=== PATIENT | female | born 1985 | race Caucasian/White ===

== ENCOUNTER 2017-01-20 08:35 | Emergency (ER) ==
[2017-01-20 08:40] VITALS: BP 117/69
[2017-01-20 10:30] LABS: UR AMPHETAMINES QUAL PRESUMPTIVE POSITIVE (NONE DETECT); UR BARBITUATES QUAL NONE DETECTED (NONE DETECT); UR BENZODIAZEPIN QUAL PRESUMPTIVE POSITIVE (NONE DETECT); UR CANNABINOIDS QUAL NONE DETECTED (NONE DETECT); UR COCAINE QUAL NONE DETECTED (NONE DETECT); UR METHADONE QUAL PRESUMPTIVE POSITIVE (NONE DETECT); UR OPIATES QUAL NONE DETECTED (NONE DETECT); UR OXYCODONE QUAL NONE DETECTED (NONE DETECT); UR PCP QUAL PRESUMPTIVE POSITIVE (NONE DETECT)
== END 2017-01-20 09:47 | disposition left against medical advice (07) ==
LOC: ED 08:35
DX: M54.9 Dorsalgia, unspecified (principal); R47.81 Slurred speech; Z98.890 Other specified postprocedural states
CPT/HCPCS: G0480; 80324; 80345; 80346; 80349; 80353; 80358; 80361; 80365; 83992

== ENCOUNTER → 2017-01-22 | Emergency (ER) ==
[2017-01-22 08:44] VITALS: BP 120/78
--- NOTE | 2017-01-22 09:38 | PROVIDER DOCUMENTATION ---
HPI-Musculoskeletal Pain/Inj - GENERAL Chief Complaint: Back Pain Stated Complaint: BCK PAIN Time Seen by Provider: 01/22/17 09:11 Source: patient - HX OF PRESENT ILLNESS-MUSKULOSKELTAL Nature of Presenting Problem: Pt is a 31 y/o white female c chief complaint of back pain. NOTE: I went into the patient's room to see her. I greeted her and introduced myself and she immediately shouted that she dose not want to see a PA or [employer] and that she wants to see a doctor. I contacted Dr. Olmedo (ER MD) who was at bedside with a critical patient. He will see this pt when it is safe to leave the pt. Pt also initially refused to give a urine sample but after I left the room, threw the urine cup toward the door spilling urine on the floor. Review of Systems - Adult - REVIEW OF SYSTEMS - ADULT ROS:: limited per condition (Pt refused to discuss ROS with provider) Constitutional: reports: no symptoms reported Eyes: reports: no symptoms reported Ears, Nose, Mouth & Throat: reports: no symptoms reported Cardiovascular: reports: no symptoms reported Respiratory: reports: no symptoms reported Gastrointestinal: reports: no symptoms reported Genitourinary: reports: no symptoms reported Musculoskeletal: reports: no symptoms reported Integumentary: reports: no symptoms reported Neurological: reports: no symptoms reported Psychiatric: reports: no symptoms reported Endocrine: reports: no symptoms reported Hematologic/Lymphatic: reports: no symptoms reported Allergic/Immunologic: reports: no symptoms reported All Other Systems: Reviewed and Negative Past History - Adult - PAST MEDICAL HISTORY-ADULT Review of Records: reports: Old Records Reviewed, Nursing Assessment Review, Medications Reviewed, Social history reviewed & non-contributory. Major Childhood Illnesses: reports: denies history Cardiovascular: reports: CHF Respiratory: reports: asthma, pneumonia Gastrointestinal: reports: Crohn's, colitis, GERD, pancreatitis, polyps (colon) Obstetrical/Gynecological: reports: endometriosis Genitourinary: reports: kidney stones Musculoskeletal: reports: intervertebral disc disease, neck/back injury, orthopedic injury Neurological: reports: denies history Psychiatric: reports: anxiety, ptsd Endocrine/Immune: reports: denies history Other Conditions: reports: denies history - PRIOR SURGERIES/PROCEDURES Surgical/Procedure History: reports: appendectomy, EGD, hysterectomy, bowel surgery (colon), back/neck (neck Sx), other (dx chrons disease, rotator cuff, polyps removed from colon ) - IMMUNIZATION STATUS Childhood Immunizations: See Nurse Assessment Flu Vaccine: See Nurse Assessment - FAMILY HISTORY Family History: reviewed, not pertinent Physical Exam-Injury Related - Physical Exam-Injury Related Exam Limited by: Pt refused physical exam Initial Vital Signs Reviewed: Yes General Appearance: appears well, alert, no apparent distress Progress - PLAN OF CARE/RESULTS Progress/Plan/Lab Results: Orders Category Date Time Status UA Reflex [URINALYSIS W/POSS RFLX CULT] [URINALYSIS] Lab 01/22/17 09:25 Uncollected Stat Vital Signs - 24 hr 01/22/17 08:43 Temperature 98.1 F Pulse Rate 113 H Respiratory 18 Rate Blood Pressure 120/78 O2 Sat by Pulse 99 Oximetry - REASSESSMENT Reassessment #1 Time Reassessed: 09:49 (Patient's friend came out of her exam room and asked how long it would be until she saw a physician. I told her that Dr. Olmedo is currently at bedside with a critical patient but another physician would be coming on duty in 10 minutes. The patient screamed from the room, "this is bull shit" and stormed out of the ER. Pt was noted to have a normal gait and to have full use of her legs. Unfortunately, pt would not permit me to preform an exam. pt was seen in the ER on 01/20/17 and had a UDS that was positive for multiple drugs. ) Reassessment #2 Time Reassessed: 10:00 (Pt walked past Dr. Olmedo as he was coming to see her. The tech asked her if she would like to stop and talk with the physician. She continued to walk out of the ER yelling profanities. ) Departure - Departure Time of Disposition Order: 10:03 DIAGNOSIS: Malingering, Anger Back pain Qualifiers: Back pain location: back pain in unspecified location Chronicity: unspecified Back pain laterality: midline Qualified Code(s): M54.89 - Other dorsalgia [facility]: Emergent Condition: Stable Additional Instructions: ED Follow Up Instructions: You have been treated by a care provider in the Emergency Department. These instructions are being provided to you so you can have an understanding of how to care for yourself upon discharge. Upon discharge from the Emergency Department, you are responsible for making arrangements for follow-up care by a physician of your choice. Take all prescribed medications as directed. Return to the Emergency Department immediately for any new or worsening symptoms. You may call the Physician Referral phone number at [phone] to obtain a list of Physicians who are taking new patients. Referrals: Carrillo Araujo, DO [Primary Care Provider] - Attestation - Physician/ [facility] Attestation Patient care was provided by Advanced Practice Provider:: Yes Advanced Practice Provider:: Jackson Carballo Advanced Practice Provider documentation review:: The Mid-level provider documentation, treatment plan and medical decision making was reviewed by the physician who agrees with all treatment and medical decision making by the MLP.
== END | disposition left against medical advice (07) ==
LOC: ED 08:36
DX: M54.89 Other dorsalgia (principal); R45.4 Irritability and anger; Z76.5 Malingerer [conscious simulation]; Z87.442 Personal history of urinary calculi

== ENCOUNTER 2017-01-26 10:10 | Emergency (ER) ==
[2017-01-26] MEDS ORDERED: NS 1,000 ML IV ONE (10:15)
[2017-01-26] MEDS ORDERED: ACTIDOSE 50 GM LIQUID NG ONE (10:25)
[2017-01-26 10:45] LABS: URINE CULTURE NEEDED? NO; URINE MICRO REVIEW NEEDED? NO; URINE SOURCE CLEAN CATCH
[2017-01-26 10:47] LABS: MANUAL DIFF NEEDED? NO
[2017-01-26 10:56] LABS: BILIRUBIN URINE NEGATIVE (NEGATIVE); BLOOD URINE NEGATIVE (NEGATIVE); COLOR YELLOW; GLUCOSE URINE NEGATIVE (NEGATIVE); LEUKOCYTES URINE NEGATIVE (NEGATIVE); NITRITE URINE NEGATIVE (NEGATIVE); PROTEIN URINE TRACE mg/dL (NEGATIVE); SP GRAVITY URINE 1.029; TURBIDITY URINE CLEAR (CLEAR); UR EPITHELIAL CELLS <10 /HPF (<10); URINE BACTERIA 1+ /HPF; URINE RBC <10 /HPF (<10); URINE WBC <10 /HPF (<10); UROBILINOGEN URINE NORMAL (NORMAL)
[2017-01-26 10:56] LABS: BASO% 0.2 % (0.0-0.8); EOS# 0.12 X1000 (0.0-0.7); EOS% 1.4 % (0.0-10.0); HEMATOCRIT 42.6 % (37.0-47.0); HEMOGLOBIN 14.3 g/dL (12.0-16.0); LYMPH# 2.09 X1000 (1.2-3.4); LYMPH% 23.8 % (20.5-51.1); MCH 30.6 PG (27-31); MCHC 33.6 g/dL (33-37); MCV 91.2 FL (81-99); MONO# 0.54 X1000 (0.11-0.59); MONO% 6.2 % (1.7-9.3); NEUT% 68.4 % (42.2-75.2); PLT 361 X1000 (130-400); RBC 4.67 XMIL (4.2-5.4)
[2017-01-26 11:03] LABS: INR 1.03; PROTIME 10.9 Seconds (9.2-11.7)
--- NOTE | 2017-01-26 11:08 | PROVIDER DOCUMENTATION ---
HPI-Psychological Disorder - General Source: patient, EMS - History of Present Illness-Psych Onset/Duration: reports: this morning Timing: reports: still present Severity: reports: moderate Psychiatric Complaints: reports: insomnia, suicidal ideation Previous psych related hospitalizations?: Yes Patient arrived by:: EMS called by patient Similar Symptoms Previously?: Yes Recently seen or treated by another doctor?: Yes <Parish Light - Last Filed: 01/26/17 17:38> <Sayda Li - Last Filed: 01/27/17 08:15> - General Chief Complaint: Suicide Attempt Stated Complaint: SI, Tylenol O/D Time Seen by Provider: 01/26/17 10:50 Allergies/Adverse Reactions: Patient Allergies Allergy/AdvReac Type Severity Reaction Status Date / Time ketorolac tromethamine * Allergy SWELLING Verified 01/05/17 10:52 [From Toradol] lamotrigine [From Lamictal] Allergy RASH Verified 01/05/17 10:52 methocarbamol [From Robaxin] Allergy ANAPHYLAXIS Verified 01/05/17 10:52 Home Medications: Home Medication List Medication Instructions Recorded Confirmed Last Taken Type Alprazolam [Xanax] 1 mg PO BID 11/01/15 01/26/17 01/26/17 07:00 History 1 MG Quetiapine Fumarate [Seroquel] 600 mg PO QHS 07/20/16 01/26/17 01/26/17 07:00 History 600 MG Sertraline HCl [Zoloft] 100 mg PO DAILY 10/11/16 01/26/17 01/26/17 07:00 History 100 MG - History of Present Illness-Psych Nature of Presenting Problem: Reports to er with cc of SI brought to er by ems. EMS reports pt had tried overdosing with tylenol and benadryl. 30010 milligrams of tylenol and 2400 milligrams of benadryl. Pt is alert and oriented x 3 on arrival. REprots had back sx last week continues to have pain. Mental health changed medication and has been getting any sleep in a week and reports tried killing herself. (Parish Light) Review of Systems - Adult - REVIEW OF SYSTEMS - ADULT Constitutional: denies: chills, fever, fatique Eyes: reports: no symptoms reported Ears, Nose, Mouth & Throat: reports: no symptoms reported Cardiovascular: denies: chest pain, irregular heart rate, orthopnea Respiratory: reports: no symptoms reported Gastrointestinal: reports: no symptoms reported Genitourinary: reports: no symptoms reported Musculoskeletal: reports: back pain. denies: bone pain, joint pain, joint swelling, muscle aches Integumentary: reports: no symptoms reported Neurological: reports: no symptoms reported Psychiatric: reports: see HPI, insomnia, suicidal thoughts Endocrine: reports: no symptoms reported Hematologic/Lymphatic: reports: no symptoms reported Allergic/Immunologic: reports: no symptoms reported All Other Systems: Reviewed and Negative <Parish Light - Last Filed: 01/26/17 17:38> Past History - Adult - PAST MEDICAL HISTORY-ADULT Review of Records: reports: Nursing Assessment Review, Medications Reviewed Major Childhood Illnesses: reports: denies history Cardiovascular: reports: CHF Respiratory: reports: asthma, pneumonia Gastrointestinal: reports: Crohn's, colitis, GERD, pancreatitis, polyps (colon) Obstetrical/Gynecological: reports: endometriosis Genitourinary: reports: kidney stones Musculoskeletal: reports: intervertebral disc disease, neck/back injury, orthopedic injury Neurological: reports: denies history Psychiatric: reports: anxiety, ptsd Endocrine/Immune: reports: denies history Other Conditions: reports: denies history - PRIOR SURGERIES/PROCEDURES Surgical/Procedure History: reports: appendectomy, EGD, hysterectomy, bowel surgery (colon), back/neck (neck Sx), other (dx chrons disease, rotator cuff, polyps removed from colon ) - IMMUNIZATION STATUS Childhood Immunizations: See Nurse Assessment Flu Vaccine: See Nurse Assessment - FAMILY HISTORY Family History: reviewed, not pertinent - SOCIAL HISTORY Smoking: cigarettes, less than 1 pack/day Provider spent 3-5 mins advising pt. on dangers of tobacco.: Discussed manners to quit use, and f/u contacts for add'l counseling. Substance Use: none/never <Parish Light - Last Filed: 01/26/17 17:38> Physical Exam-Psych Focus - Physical Exam-Psych Initial Vital Signs Reviewed: Yes Appearance: no apparent distress, no memory impairment, alert. 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 nml as tested, oriented x 3, responds to pain Behavior/Eye Contact/Speech: cooperative, good eye contact, normal speech Thoughts/Hallucinations: no apparent hallucination HENMT: normal ENT inspection, TMs normal, pharynx normal Neck: non-tender, full range of motion, supple, normal inspection Respiratory: chest non-tender, lungs clear, normal breath sounds, no pleuratic chest pain, no respiratory distress, no accessory muscle use Cardiovascular: tachycardia Abdominal Exam: normal bowel sounds, non tender, soft, no organomegaly, no pulsatile mass Back Exam: other (joy lower back) Extremity: normal range of motion, non-tender Integumentary: normal color, normal turgor, warm/dry <Parish Light - Last Filed: 01/26/17 17:38> Progress - REASSESSMENT Reassessment #1 Time Reassessed: 17:11 ([facility] called for evaluation at this time) - EKG 1 Time of EKG reading by physician:: 10:24 EKG Read and Signed by:: Dmitry Urbina EKG Interpretation (*Must complete 3 of following elements*): Abnormal (ST and Twave abnormality consider anterolateral ischemia) Rate: 107 Rhythm: sinus tachy [place]: normal QRS: normal 2 Time of EKG reading by physician:: 17:35 EKG Read and Signed by:: Sayda Li EKG Interpretation (*Must complete 3 of following elements*): Abnormal (T WAVE ABNORMALITY CONSIDER ANTERIOR ISCHEMIA; PROLONGED QT) Rate: 86 Rhythm: NSR [place]: normal QRS: normal <Parish Light - Last Filed: 01/26/17 17:38> - REASSESSMENT Reassessment #2 Time Reassessed: 08:14 Status: improving (Will be transferred to [facility].) <Sayda Li - Last Filed: 01/27/17 08:15> - PLAN OF CARE/RESULTS Progress/Plan/Lab Results: Orders Category Date Time Status ACETAMINOPHEN [TDM] Stat Lab 01/26/17 10:25 Received ACETAMINOPHEN [TDM] Stat Lab 01/26/17 10:25 Received ALCOHOL BLOOD Stat Lab 01/26/17 10:25 Received CBC WITH ELECTRONIC DIFF [HEME] Stat Lab 01/26/17 10:25 Completed CMP [COMPREHENSIVE METABOLIC PANEL] [CHEM] Stat Lab 01/26/17 10:25 Received PROTIME WITH INR [COAG] Stat Lab 01/26/17 10:25 Completed SALICYLATES [TDM] Stat Lab 01/26/17 10:25 Received UA NIMS W/REFLEX CULT [URINALYSIS] Stat Lab 01/26/17 10:27 Completed UDS [URINE DRUG SCREEN] Stat Lab 01/26/17 10:27 Received 0.9% Sodium Chloride Inj [Ns] 1,000 ml Med 01/26/17 10:15 Active IV 125 mls/hr Charcoal/Sorbitol Solution [Actidose 50 gm Liquid] Med 01/26/17 10:25 Discontinued 100 gm NG NOW ONE EKG [EKG] Stat Ther 01/26/17 10:29 Ordered Vital Signs - 24 hr 01/26/17 01/26/17 10:11 11:01 Temperature 98.4 F Pulse Rate 108 H 116 H Respiratory 14 20 Rate Blood Pressure 131/68 115/66 O2 Sat by Pulse 98 98 Oximetry Laboratory Tests 01/26/17 01/26/17 01/26/17 10:25 10:25 10:27 WBC 8.77 RBC 4.67 Hgb 14.3 Hct 42.6 MCV 91.2 MCH 30.6 MCHC 33.6 RDW Std Deviation 13.4 Plt Count 361 MPV 10.0 Immature Gran % (Auto) 0.0 Neut % (Auto) 68.4 Lymph % (Auto) 23.8 [place] % (Auto) 6.2 Eos % (Auto) 1.4 Baso % (Auto) 0.2 Immature Gran # (Auto) 0.00 Neut # (Auto) 6.00 Lymph # (Auto) 2.09 [place] # (Auto) 0.54 Eos # (Auto) 0.12 Baso # (Auto) 0.02 PT 10.9 INR 1.03 Urine Source CLEAN CATCH Urine Color YELLOW Urine Turbidity CLEAR Urine pH 6.0 Ur Specific [place] 1.029 Urine Protein TRACE A Ur Glucose (Stick) NEGATIVE Ur Ketones (Stick) NEGATIVE Urine Blood NEGATIVE Urine Nitrite NEGATIVE Urine Bilirubin NEGATIVE Urobilinogen Dipstick NORMAL Urine Leukocytes NEGATIVE Urine WBC (Auto) <10 Urine RBC (Auto) <10 U Epithel Cells (Auto) <10 Urine Bacteria (Auto) 1+ Laboratory Tests 01/26/17 01/26/17 01/26/17 10:25 10:25 10:25 WBC 8.77 RBC 4.67 Hgb 14.3 Hct 42.6 MCV 91.2 MCH 30.6 MCHC 33.6 RDW Std Deviation 13.4 Plt Count 361 MPV 10.0 Immature Gran % (Auto) 0.0 Neut % (Auto) 68.4 Lymph % (Auto) 23.8 [place] % (Auto) 6.2 Eos % (Auto) 1.4 Baso % (Auto) 0.2 Immature Gran # (Auto) 0.00 Neut # (Auto) 6.00 Lymph # (Auto) 2.09 [place] # (Auto) 0.54 Eos # (Auto) 0.12 Baso # (Auto) 0.02 PT 10.9 INR 1.03 Sodium 138 Potassium 4.1 Chloride 100 Carbon Dioxide 23 L Anion Gap 15 BUN 13 Creatinine 0.7 Estimated GFR/1.73 m2 > 60 BUN/Creatinine Ratio 19 Glucose 133 H Calculated Osmolality 278 Calcium 9.4 Total Bilirubin 0.25 AST 12 ALT 13 Alkaline Phosphatase 64 Total Protein 7.5 Albumin 4.3 Globulin 3.2 Albumin/Globulin Ratio 1.3 Urine Source Urine Color Urine Turbidity Urine pH Ur Specific [place] Urine Protein Ur Glucose (Stick) Ur Ketones (Stick) Urine Blood Urine Nitrite Urine Bilirubin Urobilinogen Dipstick Urine Leukocytes Urine WBC (Auto) Urine RBC (Auto) U Epithel Cells (Auto) Urine Bacteria (Auto) Salicylates Urine Opiates Screen Ur Oxycodone Screen Ur Methadone, Qual Acetaminophen 79.8 H Ur Barbiturates Screen Ur Phencyclidine Scrn Ur Amphetamines Screen U Benzodiazepines Scrn Urine Cocaine Screen U Cannabinoids Screen Plasma/Serum Ethyl Alc 01/26/17 01/26/17 01/26/17 10:25 10:25 10:27 WBC RBC Hgb Hct MCV MCH MCHC RDW Std Deviation Plt Count MPV Immature Gran % (Auto) Neut % (Auto) Lymph % (Auto) [place] % (Auto) Eos % (Auto) Baso % (Auto) Immature Gran # (Auto) Neut # (Auto) Lymph # (Auto) [place] # (Auto) Eos # (Auto) Baso # (Auto) PT INR Sodium Potassium Chloride Carbon Dioxide Anion Gap BUN Creatinine Estimated GFR/1.73 m2 BUN/Creatinine Ratio Glucose Calculated Osmolality Calcium Total Bilirubin AST ALT Alkaline Phosphatase Total Protein Albumin Globulin Albumin/Globulin Ratio Urine Source CLEAN CATCH Urine Color YELLOW Urine Turbidity CLEAR Urine pH 6.0 Ur Specific [place] 1.029 Urine Protein TRACE A Ur Glucose (Stick) NEGATIVE Ur Ketones (Stick) NEGATIVE Urine Blood NEGATIVE Urine Nitrite NEGATIVE Urine Bilirubin NEGATIVE Urobilinogen Dipstick NORMAL Urine Leukocytes NEGATIVE Urine WBC (Auto) <10 Urine RBC (Auto) <10 U Epithel Cells (Auto) <10 Urine Bacteria (Auto) 1+ Salicylates < 3.00 L Urine Opiates Screen Ur Oxycodone Screen Ur Methadone, Qual Acetaminophen 78.6 H Ur Barbiturates Screen Ur Phencyclidine Scrn Ur Amphetamines Screen U Benzodiazepines Scrn Urine Cocaine Screen U Cannabinoids Screen Plasma/Serum Ethyl Alc 01/26/17 10:27 WBC RBC Hgb Hct MCV MCH MCHC RDW Std Deviation Plt Count MPV Immature Gran % (Auto) Neut % (Auto) Lymph % (Auto) [place] % (Auto) Eos % (Auto) Baso % (Auto) Immature Gran # (Auto) Neut # (Auto) Lymph # (Auto) [place] # (Auto) Eos # (Auto) Baso # (Auto) PT INR Sodium Potassium Chloride Carbon Dioxide Anion Gap BUN Creatinine Estimated GFR/1.73 m2 BUN/Creatinine Ratio Glucose Calculated Osmolality Calcium Total Bilirubin AST ALT Alkaline Phosphatase Total Protein Albumin Globulin Albumin/Globulin Ratio Urine Source Urine Color Urine Turbidity Urine pH Ur Specific [place] Urine Protein Ur Glucose (Stick) Ur Ketones (Stick) Urine Blood Urine Nitrite Urine Bilirubin Urobilinogen Dipstick Urine Leukocytes Urine WBC (Auto) Urine RBC (Auto) U Epithel Cells (Auto) Urine Bacteria (Auto) Salicylates Urine Opiates Screen NONE DETECTED Ur Oxycodone Screen NONE DETECTED Ur Methadone, Qual NONE DETECTED Acetaminophen Ur Barbiturates Screen NONE DETECTED Ur Phencyclidine Scrn NONE DETECTED Ur Amphetamines Screen NONE DETECTED U Benzodiazepines Scrn PRESUMPTIVE POSITIVE A Urine Cocaine Screen NONE DETECTED U Cannabinoids Screen NONE DETECTED Plasma/Serum Ethyl Alc Laboratory Tests 01/26/17 01/26/17 01/26/17 10:25 10:25 10:25 WBC 8.77 RBC 4.67 Hgb 14.3 Hct 42.6 MCV 91.2 MCH 30.6 MCHC 33.6 RDW Std Deviation 13.4 Plt Count 361 MPV 10.0 Immature Gran % (Auto) 0.0 Neut % (Auto) 68.4 Lymph % (Auto) 23.8 [place] % (Auto) 6.2 Eos % (Auto) 1.4 Baso % (Auto) 0.2 Immature Gran # (Auto) 0.00 Neut # (Auto) 6.00 Lymph # (Auto) 2.09 [place] # (Auto) 0.54 Eos # (Auto) 0.12 Baso # (Auto) 0.02 PT 10.9 INR 1.03 Sodium 138 Potassium 4.1 Chloride 100 Carbon Dioxide 23 L Anion Gap 15 BUN 13 Creatinine 0.7 Estimated GFR/1.73 m2 > 60 BUN/Creatinine Ratio 19 Glucose 133 H Calculated Osmolality 278 Calcium 9.4 Total Bilirubin 0.25 AST 12 ALT 13 Alkaline Phosphatase 64 Total Protein 7.5 Albumin 4.3 Globulin 3.2 Albumin/Globulin Ratio 1.3 Urine Source Urine Color Urine Turbidity Urine pH Ur Specific [place] Urine Protein Ur Glucose (Stick) Ur Ketones (Stick) Urine Blood Urine Nitrite Urine Bilirubin Urobilinogen Dipstick Urine Leukocytes Urine WBC (Auto) Urine RBC (Auto) U Epithel Cells (Auto) Urine Bacteria (Auto) Salicylates Urine Opiates Screen Ur Oxycodone Screen Ur Methadone, Qual Acetaminophen 79.8 H Ur Barbiturates Screen Ur Phencyclidine Scrn Ur Amphetamines Screen U Benzodiazepines Scrn Urine Cocaine Screen U Cannabinoids Screen Plasma/Serum Ethyl Alc 01/26/17 01/26/17 01/26/17 10:25 10:25 10:27 WBC RBC Hgb Hct MCV MCH MCHC RDW Std Deviation Plt Count MPV Immature Gran % (Auto) Neut % (Auto) Lymph % (Auto) [place] % (Auto) Eos % (Auto) Baso % (Auto) Immature Gran # (Auto) Neut # (Auto) Lymph # (Auto) [place] # (Auto) Eos # (Auto) Baso # (Auto) PT INR Sodium Potassium Chloride Carbon Dioxide Anion Gap BUN Creatinine Estimated GFR/1.73 m2 BUN/Creatinine Ratio Glucose Calculated Osmolality Calcium Total Bilirubin AST ALT Alkaline Phosphatase Total Protein Albumin Globulin Albumin/Globulin Ratio Urine Source CLEAN CATCH Urine Color YELLOW Urine Turbidity CLEAR Urine pH 6.0 Ur Specific [place] 1.029 Urine Protein TRACE A Ur Glucose (Stick) NEGATIVE Ur Ketones (Stick) NEGATIVE Urine Blood NEGATIVE Urine Nitrite NEGATIVE Urine Bilirubin NEGATIVE Urobilinogen Dipstick NORMAL Urine Leukocytes NEGATIVE Urine WBC (Auto) <10 Urine RBC (Auto) <10 U Epithel Cells (Auto) <10 Urine Bacteria (Auto) 1+ Salicylates < 3.00 L Urine Opiates Screen Ur Oxycodone Screen Ur Methadone, Qual Acetaminophen 78.6 H Ur Barbiturates Screen Ur Phencyclidine Scrn Ur Amphetamines Screen U Benzodiazepines Scrn Urine Cocaine Screen U Cannabinoids Screen Plasma/Serum Ethyl Alc 01/26/17 10:27 WBC RBC Hgb Hct MCV MCH MCHC RDW Std Deviation Plt Count MPV Immature Gran % (Auto) Neut % (Auto) Lymph % (Auto) [place] % (Auto) Eos % (Auto) Baso % (Auto) Immature Gran # (Auto) Neut # (Auto) Lymph # (Auto) [place] # (Auto) Eos # (Auto) Baso # (Auto) PT INR Sodium Potassium Chloride Carbon Dioxide Anion Gap BUN Creatinine Estimated GFR/1.73 m2 BUN/Creatinine Ratio Glucose Calculated Osmolality Calcium Total Bilirubin AST ALT Alkaline Phosphatase Total Protein Albumin Globulin Albumin/Globulin Ratio Urine Source Urine Color Urine Turbidity Urine pH Ur Specific [place] Urine Protein Ur Glucose (Stick) Ur Ketones (Stick) Urine Blood Urine Nitrite Urine Bilirubin Urobilinogen Dipstick Urine Leukocytes Urine WBC (Auto) Urine RBC (Auto) U Epithel Cells (Auto) Urine Bacteria (Auto) Salicylates Urine Opiates Screen NONE DETECTED Ur Oxycodone Screen NONE DETECTED Ur Methadone, Qual NONE DETECTED Acetaminophen Ur Barbiturates Screen NONE DETECTED Ur Phencyclidine Scrn NONE DETECTED Ur Amphetamines Screen NONE DETECTED U Benzodiazepines Scrn PRESUMPTIVE POSITIVE A Urine Cocaine Screen NONE DETECTED U Cannabinoids Screen NONE DETECTED Plasma/Serum Ethyl Alc Laboratory Tests 01/26/17 01/26/17 01/26/17 10:25 10:25 10:25 WBC 8.77 RBC 4.67 Hgb 14.3 Hct 42.6 MCV 91.2 MCH 30.6 MCHC 33.6 RDW Std Deviation 13.4 Plt Count 361 MPV 10.0 Immature Gran % (Auto) 0.0 Neut % (Auto) 68.4 Lymph % (Auto) 23.8 [place] % (Auto) 6.2 Eos % (Auto) 1.4 Baso % (Auto) 0.2 Immature Gran # (Auto) 0.00 Neut # (Auto) 6.00 Lymph # (Auto) 2.09 [place] # (Auto) 0.54 Eos # (Auto) 0.12 Baso # (Auto) 0.02 PT 10.9 INR 1.03 Sodium 138 Potassium 4.1 Chloride 100 Carbon Dioxide 23 L Anion Gap 15 BUN 13 Creatinine 0.7 Estimated GFR/1.73 m2 > 60 BUN/Creatinine Ratio 19 Glucose 133 H Calculated Osmolality 278 Calcium 9.4 Magnesium Total Bilirubin 0.25 AST 12 ALT 13 Alkaline Phosphatase 64 Total Protein 7.5 Albumin 4.3 Globulin 3.2 Albumin/Globulin Ratio 1.3 Urine Source Urine Color Urine Turbidity Urine pH Ur Specific [place] Urine Protein Ur Glucose (Stick) Ur Ketones (Stick) Urine Blood Urine Nitrite Urine Bilirubin Urobilinogen Dipstick Urine Leukocytes Urine WBC (Auto) Urine RBC (Auto) U Epithel Cells (Auto) Urine Bacteria (Auto) Urine Test Salicylates Urine Opiates Screen Ur Oxycodone Screen Ur Methadone, Qual Acetaminophen 79.8 H Ur Barbiturates Screen Ur Phencyclidine Scrn Ur Amphetamines Screen U Benzodiazepines Scrn Urine Cocaine Screen U Cannabinoids Screen Plasma/Serum Ethyl Alc 01/26/17 01/26/17 01/26/17 10:25 10:25 10:25 WBC RBC Hgb Hct MCV MCH MCHC RDW Std Deviation Plt Count MPV Immature Gran % (Auto) Neut % (Auto) Lymph % (Auto) [place] % (Auto) Eos % (Auto) Baso % (Auto) Immature Gran # (Auto) Neut # (Auto) Lymph # (Auto) [place] # (Auto) Eos # (Auto) Baso # (Auto) PT INR Sodium Potassium Chloride Carbon Dioxide Anion Gap BUN Creatinine Estimated GFR/1.73 m2 BUN/Creatinine Ratio Glucose Calculated Osmolality Calcium Magnesium Total Bilirubin AST ALT Alkaline Phosphatase Total Protein Albumin Globulin Albumin/Globulin Ratio Urine Source Urine Color Urine Turbidity Urine pH Ur Specific [place] Urine Protein Ur Glucose (Stick) Ur Ketones (Stick) Urine Blood Urine Nitrite Urine Bilirubin Urobilinogen Dipstick Urine Leukocytes Urine WBC (Auto) Urine RBC (Auto) U Epithel Cells (Auto) Urine Bacteria (Auto) Urine Test NEGATIVE Salicylates < 3.00 L Urine Opiates Screen Ur Oxycodone Screen Ur Methadone, Qual Acetaminophen 78.6 H Ur Barbiturates Screen Ur Phencyclidine Scrn Ur Amphetamines Screen U Benzodiazepines Scrn Urine Cocaine Screen U Cannabinoids Screen Plasma/Serum Ethyl Alc 01/26/17 01/26/17 01/26/17 10:27 10:27 12:26 WBC RBC Hgb Hct MCV MCH MCHC RDW Std Deviation Plt Count MPV Immature Gran % (Auto) Neut % (Auto) Lymph % (Auto) [place] % (Auto) Eos % (Auto) Baso % (Auto) Immature Gran # (Auto) Neut # (Auto) Lymph # (Auto) [place] # (Auto) Eos # (Auto) Baso # (Auto) PT INR Sodium Potassium Chloride Carbon Dioxide Anion Gap BUN Creatinine Estimated GFR/1.73 m2 BUN/Creatinine Ratio Glucose Calculated Osmolality Calcium Magnesium 1.8 Total Bilirubin AST ALT Alkaline Phosphatase Total Protein Albumin Globulin Albumin/Globulin Ratio Urine Source CLEAN CATCH Urine Color YELLOW Urine Turbidity CLEAR Urine pH 6.0 Ur Specific [place] 1.029 Urine Protein TRACE A Ur Glucose (Stick) NEGATIVE Ur Ketones (Stick) NEGATIVE Urine Blood NEGATIVE Urine Nitrite NEGATIVE Urine Bilirubin NEGATIVE Urobilinogen Dipstick NORMAL Urine Leukocytes NEGATIVE Urine WBC (Auto) <10 Urine RBC (Auto) <10 U Epithel Cells (Auto) <10 Urine Bacteria (Auto) 1+ Urine Test Salicylates Urine Opiates Screen NONE DETECTED Ur Oxycodone Screen NONE DETECTED Ur Methadone, Qual NONE DETECTED Acetaminophen Ur Barbiturates Screen NONE DETECTED Ur Phencyclidine Scrn NONE DETECTED Ur Amphetamines Screen NONE DETECTED U Benzodiazepines Scrn PRESUMPTIVE POSITIVE A Urine Cocaine Screen NONE DETECTED U Cannabinoids Screen NONE DETECTED Plasma/Serum Ethyl Alc 01/26/17 12:28 WBC RBC Hgb Hct MCV MCH MCHC RDW Std Deviation Plt Count MPV Immature Gran % (Auto) Neut % (Auto) Lymph % (Auto) [place] % (Auto) Eos % (Auto) Baso % (Auto) Immature Gran # (Auto) Neut # (Auto) Lymph # (Auto) [place] # (Auto) Eos # (Auto) Baso # (Auto) PT INR Sodium Potassium Chloride Carbon Dioxide Anion Gap BUN Creatinine Estimated GFR/1.73 m2 BUN/Creatinine Ratio Glucose Calculated Osmolality Calcium Magnesium Total Bilirubin AST ALT Alkaline Phosphatase Total Protein Albumin Globulin Albumin/Globulin Ratio Urine Source Urine Color Urine Turbidity Urine pH Ur Specific [place] Urine Protein Ur Glucose (Stick) Ur Ketones (Stick) Urine Blood Urine Nitrite Urine Bilirubin Urobilinogen Dipstick Urine Leukocytes Urine WBC (Auto) Urine RBC (Auto) U Epithel Cells (Auto) Urine Bacteria (Auto) Urine Test Salicylates Urine Opiates Screen Ur Oxycodone Screen Ur Methadone, Qual Acetaminophen 50.3 H Ur Barbiturates Screen Ur Phencyclidine Scrn Ur Amphetamines Screen U Benzodiazepines Scrn Urine Cocaine Screen U Cannabinoids Screen Plasma/Serum Ethyl Alc Awaiting a 1630 acetaminophen level before calling [facility] for evaluation. Laboratory Tests 01/26/17 01/26/17 01/26/17 10:25 10:25 10:25 WBC 8.77 RBC 4.67 Hgb 14.3 Hct 42.6 MCV 91.2 MCH 30.6 MCHC 33.6 RDW Std Deviation 13.4 Plt Count 361 MPV 10.0 Immature Gran % (Auto) 0.0 Neut % (Auto) 68.4 Lymph % (Auto) 23.8 [place] % (Auto) 6.2 Eos % (Auto) 1.4 Baso % (Auto) 0.2 Immature Gran # (Auto) 0.00 Neut # (Auto) 6.00 Lymph # (Auto) 2.09 [place] # (Auto) 0.54 Eos # (Auto) 0.12 Baso # (Auto) 0.02 PT 10.9 INR 1.03 Sodium 138 Potassium 4.1 Chloride 100 Carbon Dioxide 23 L Anion Gap 15 BUN 13 Creatinine 0.7 Estimated GFR/1.73 m2 > 60 BUN/Creatinine Ratio 19 Glucose 133 H Calculated Osmolality 278 Calcium 9.4 Magnesium Total Bilirubin 0.25 AST 12 ALT 13 Alkaline Phosphatase 64 Total Protein 7.5 Albumin 4.3 Globulin 3.2 Albumin/Globulin Ratio 1.3 Urine Source Urine Color Urine Turbidity Urine pH Ur Specific [place] Urine Protein Ur Glucose (Stick) Ur Ketones (Stick) Urine Blood Urine Nitrite Urine Bilirubin Urobilinogen Dipstick Urine Leukocytes Urine WBC (Auto) Urine RBC (Auto) U Epithel Cells (Auto) Urine Bacteria (Auto) Urine Test Salicylates Urine Opiates Screen Ur Oxycodone Screen Ur Methadone, Qual Acetaminophen 79.8 H Ur Barbiturates Screen Ur Phencyclidine Scrn Ur Amphetamines Screen U Benzodiazepines Scrn Urine Cocaine Screen U Cannabinoids Screen Plasma/Serum Ethyl Alc 01/26/17 01/26/17 01/26/17 10:25 10:25 10:25 WBC RBC Hgb Hct MCV MCH MCHC RDW Std Deviation Plt Count MPV Immature Gran % (Auto) Neut % (Auto) Lymph % (Auto) [place] % (Auto) Eos % (Auto) Baso % (Auto) Immature Gran # (Auto) Neut # (Auto) Lymph # (Auto) [place] # (Auto) Eos # (Auto) Baso # (Auto) PT INR Sodium Potassium Chloride Carbon Dioxide Anion Gap BUN Creatinine Estimated GFR/1.73 m2 BUN/Creatinine Ratio Glucose Calculated Osmolality Calcium Magnesium Total Bilirubin AST ALT Alkaline Phosphatase Total Protein Albumin Globulin Albumin/Globulin Ratio Urine Source Urine Color Urine Turbidity Urine pH Ur Specific [place] Urine Protein Ur Glucose (Stick) Ur Ketones (Stick) Urine Blood Urine Nitrite Urine Bilirubin Urobilinogen Dipstick Urine Leukocytes Urine WBC (Auto) Urine RBC (Auto) U Epithel Cells (Auto) Urine Bacteria (Auto) Urine Test NEGATIVE Salicylates < 3.00 L Urine Opiates Screen Ur Oxycodone Screen Ur Methadone, Qual Acetaminophen 78.6 H Ur Barbiturates Screen Ur Phencyclidine Scrn Ur Amphetamines Screen U Benzodiazepines Scrn Urine Cocaine Screen U Cannabinoids Screen Plasma/Serum Ethyl Alc 01/26/17 01/26/17 01/26/17 10:27 10:27 12:26 WBC RBC Hgb Hct MCV MCH MCHC RDW Std Deviation Plt Count MPV Immature Gran % (Auto) Neut % (Auto) Lymph % (Auto) [place] % (Auto) Eos % (Auto) Baso % (Auto) Immature Gran # (Auto) Neut # (Auto) Lymph # (Auto) [place] # (Auto) Eos # (Auto) Baso # (Auto) PT INR Sodium Potassium Chloride Carbon Dioxide Anion Gap BUN Creatinine Estimated GFR/1.73 m2 BUN/Creatinine Ratio Glucose Calculated Osmolality Calcium Magnesium 1.8 Total Bilirubin AST ALT Alkaline Phosphatase Total Protein Albumin Globulin Albumin/Globulin Ratio Urine Source CLEAN CATCH Urine Color YELLOW Urine Turbidity CLEAR Urine pH 6.0 Ur Specific [place] 1.029 Urine Protein TRACE A Ur Glucose (Stick) NEGATIVE Ur Ketones (Stick) NEGATIVE Urine Blood NEGATIVE Urine Nitrite NEGATIVE Urine Bilirubin NEGATIVE Urobilinogen Dipstick NORMAL Urine Leukocytes NEGATIVE Urine WBC (Auto) <10 Urine RBC (Auto) <10 U Epithel Cells (Auto) <10 Urine Bacteria (Auto) 1+ Urine Test Salicylates Urine Opiates Screen NONE DETECTED Ur Oxycodone Screen NONE DETECTED Ur Methadone, Qual NONE DETECTED Acetaminophen Ur Barbiturates Screen NONE DETECTED Ur Phencyclidine Scrn NONE DETECTED Ur Amphetamines Screen NONE DETECTED U Benzodiazepines Scrn PRESUMPTIVE POSITIVE A Urine Cocaine Screen NONE DETECTED U Cannabinoids Screen NONE DETECTED Plasma/Serum Ethyl Alc 01/26/17 01/26/17 12:28 16:37 WBC RBC Hgb Hct MCV MCH MCHC RDW Std Deviation Plt Count MPV Immature Gran % (Auto) Neut % (Auto) Lymph % (Auto) [place] % (Auto) Eos % (Auto) Baso % (Auto) Immature Gran # (Auto) Neut # (Auto) Lymph # (Auto) [place] # (Auto) Eos # (Auto) Baso # (Auto) PT INR Sodium Potassium Chloride Carbon Dioxide Anion Gap BUN Creatinine Estimated GFR/1.73 m2 BUN/Creatinine Ratio Glucose Calculated Osmolality Calcium Magnesium Total Bilirubin AST ALT Alkaline Phosphatase Total Protein Albumin Globulin Albumin/Globulin Ratio Urine Source Urine Color Urine Turbidity Urine pH Ur Specific Howe Urine Protein Ur Glucose (Stick) Ur Ketones (Stick) Urine Blood Urine Nitrite Urine Bilirubin Urobilinogen Dipstick Urine Leukocytes Urine WBC (Auto) Urine RBC (Auto) U Epithel Cells (Auto) Urine Bacteria (Auto) Urine Test Salicylates Urine Opiates Screen Ur Oxycodone Screen Ur Methadone, Qual Acetaminophen 50.3 H 15.5 Ur Barbiturates Screen Ur Phencyclidine Scrn Ur Amphetamines Screen U Benzodiazepines Scrn Urine Cocaine Screen U Cannabinoids Screen Plasma/Serum Ethyl Alc ([facility] [place]) Laboratory Results - last 24 hr 01/26/17 01/26/17 01/26/17 10:25 10:25 10:25 WBC 8.77 RBC 4.67 Hgb 14.3 Hct 42.6 MCV 91.2 MCH 30.6 MCHC 33.6 RDW Std Deviation 13.4 Plt Count 361 MPV 10.0 Immature Gran % (Auto) 0.0 Neut % (Auto) 68.4 Lymph % (Auto) 23.8 [place] % (Auto) 6.2 Eos % (Auto) 1.4 Baso % (Auto) 0.2 Immature Gran # (Auto) 0.00 Neut # (Auto) 6.00 Lymph # (Auto) 2.09 [place] # (Auto) 0.54 Eos # (Auto) 0.12 Baso # (Auto) 0.02 PT 10.9 INR 1.03 Sodium 138 Potassium 4.1 Chloride 100 Carbon Dioxide 23 L Anion Gap 15 BUN 13 Creatinine 0.7 Estimated GFR/1.73 m2 > 60 BUN/Creatinine Ratio 19 Glucose 133 H Calculated Osmolality 278 Calcium 9.4 Magnesium Total Bilirubin 0.25 AST 12 ALT 13 Alkaline Phosphatase 64 Total Protein 7.5 Albumin 4.3 Globulin 3.2 Albumin/Globulin Ratio 1.3 Vitamin B12 TSH Free T4 Urine Source Urine Color Urine Turbidity Urine pH Ur Specific Howe Urine Protein Ur Glucose (Stick) Ur Ketones (Stick) Urine Blood Urine Nitrite Urine Bilirubin Urobilinogen Dipstick Urine Leukocytes Urine WBC (Auto) Urine RBC (Auto) U Epithel Cells (Auto) Urine Bacteria (Auto) Urine Test Salicylates Urine Opiates Screen Ur Oxycodone Screen Ur Methadone, Qual Acetaminophen 79.8 H Ur Barbiturates Screen Ur Phencyclidine Scrn Ur Amphetamines Screen U Benzodiazepines Scrn Urine Cocaine Screen U Cannabinoids Screen Plasma/Serum Ethyl Alc 01/26/17 01/26/17 01/26/17 10:25 10:25 10:25 WBC RBC Hgb Hct MCV MCH MCHC RDW Std Deviation Plt Count MPV Immature Gran % (Auto) Neut % (Auto) Lymph % (Auto) [place] % (Auto) Eos % (Auto) Baso % (Auto) Immature Gran # (Auto) Neut # (Auto) Lymph # (Auto) [place] # (Auto) Eos # (Auto) Baso # (Auto) PT INR Sodium Potassium Chloride Carbon Dioxide Anion Gap BUN Creatinine Estimated GFR/1.73 m2 BUN/Creatinine Ratio Glucose Calculated Osmolality Calcium Magnesium Total Bilirubin AST ALT Alkaline Phosphatase Total Protein Albumin Globulin Albumin/Globulin Ratio Vitamin B12 TSH Free T4 Urine Source Urine Color Urine Turbidity Urine pH Ur Specific Howe Urine Protein Ur Glucose (Stick) Ur Ketones (Stick) Urine Blood Urine Nitrite Urine Bilirubin Urobilinogen Dipstick Urine Leukocytes Urine WBC (Auto) Urine RBC (Auto) U Epithel Cells (Auto) Urine Bacteria (Auto) Urine Test NEGATIVE Salicylates < 3.00 L Urine Opiates Screen Ur Oxycodone Screen Ur Methadone, Qual Acetaminophen Cancelled Ur Barbiturates Screen Ur Phencyclidine Scrn Ur Amphetamines Screen U Benzodiazepines Scrn Urine Cocaine Screen U Cannabinoids Screen Plasma/Serum Ethyl Alc 01/26/17 01/26/17 01/26/17 10:27 10:27 12:26 WBC RBC Hgb Hct MCV MCH MCHC RDW Std Deviation Plt Count MPV Immature Gran % (Auto) Neut % (Auto) Lymph % (Auto) [place] % (Auto) Eos % (Auto) Baso % (Auto) Immature Gran # (Auto) Neut # (Auto) Lymph # (Auto) [place] # (Auto) Eos # (Auto) Baso # (Auto) PT INR Sodium Potassium Chloride Carbon Dioxide Anion Gap BUN Creatinine Estimated GFR/1.73 m2 BUN/Creatinine Ratio Glucose Calculated Osmolality Calcium Magnesium 1.8 Total Bilirubin AST ALT Alkaline Phosphatase Total Protein Albumin Globulin Albumin/Globulin Ratio Vitamin B12 TSH Free T4 Urine Source CLEAN CATCH Urine Color YELLOW Urine Turbidity CLEAR Urine pH 6.0 Ur Specific [place] 1.029 Urine Protein TRACE A Ur Glucose (Stick) NEGATIVE Ur Ketones (Stick) NEGATIVE Urine Blood NEGATIVE Urine Nitrite NEGATIVE Urine Bilirubin NEGATIVE Urobilinogen Dipstick NORMAL Urine Leukocytes NEGATIVE Urine WBC (Auto) <10 Urine RBC (Auto) <10 U Epithel Cells (Auto) <10 Urine Bacteria (Auto) 1+ Urine Test Salicylates Urine Opiates Screen NONE DETECTED Ur Oxycodone Screen NONE DETECTED Ur Methadone, Qual NONE DETECTED Acetaminophen Ur Barbiturates Screen NONE DETECTED Ur Phencyclidine Scrn NONE DETECTED Ur Amphetamines Screen NONE DETECTED U Benzodiazepines Scrn PRESUMPTIVE POSITIVE A Urine Cocaine Screen NONE DETECTED U Cannabinoids Screen NONE DETECTED Plasma/Serum Ethyl Alc 01/26/17 01/26/17 01/26/17 12:28 16:37 16:37 WBC RBC Hgb Hct MCV MCH MCHC RDW Std Deviation Plt Count MPV Immature Gran % (Auto) Neut % (Auto) Lymph % (Auto) [place] % (Auto) Eos % (Auto) Baso % (Auto) Immature Gran # (Auto) Neut # (Auto) Lymph # (Auto) [place] # (Auto) Eos # (Auto) Baso # (Auto) PT INR Sodium Potassium Chloride Carbon Dioxide Anion Gap BUN Creatinine Estimated GFR/1.73 m2 BUN/Creatinine Ratio Glucose Calculated Osmolality Calcium Magnesium Total Bilirubin AST ALT Alkaline Phosphatase Total Protein Albumin Globulin Albumin/Globulin Ratio Vitamin B12 288 TSH 1.05 Free T4 Urine Source Urine Color Urine Turbidity Urine pH Ur Specific [place] Urine Protein Ur Glucose (Stick) Ur Ketones (Stick) Urine Blood Urine Nitrite Urine Bilirubin Urobilinogen Dipstick Urine Leukocytes Urine WBC (Auto) Urine RBC (Auto) U Epithel Cells (Auto) Urine Bacteria (Auto) Urine Test Salicylates Urine Opiates Screen Ur Oxycodone Screen Ur Methadone, Qual Acetaminophen 50.3 H 15.5 Ur Barbiturates Screen Ur Phencyclidine Scrn Ur Amphetamines Screen U Benzodiazepines Scrn Urine Cocaine Screen U Cannabinoids Screen Plasma/Serum Ethyl Alc 01/26/17 01/26/17 16:37 16:37 WBC RBC Hgb Hct MCV MCH MCHC RDW Std Deviation Plt Count MPV Immature Gran % (Auto) Neut % (Auto) Lymph % (Auto) [place] % (Auto) Eos % (Auto) Baso % (Auto) Immature Gran # (Auto) Neut # (Auto) Lymph # (Auto) [place] # (Auto) Eos # (Auto) Baso # (Auto) PT INR Sodium Potassium Chloride Carbon Dioxide Anion Gap BUN Creatinine Estimated GFR/1.73 m2 BUN/Creatinine Ratio Glucose Calculated Osmolality Calcium Magnesium Total Bilirubin AST ALT Alkaline Phosphatase Total Protein Albumin Globulin Albumin/Globulin Ratio Vitamin B12 TSH Free T4 1.04 Urine Source Urine Color Urine Turbidity Urine pH Ur Specific [place] Urine Protein Ur Glucose (Stick) Ur Ketones (Stick) Urine Blood Urine Nitrite Urine Bilirubin Urobilinogen Dipstick Urine Leukocytes Urine WBC (Auto) Urine RBC (Auto) U Epithel Cells (Auto) Urine Bacteria (Auto) Urine Test Salicylates Urine Opiates Screen Ur Oxycodone Screen Ur Methadone, Qual Acetaminophen Ur Barbiturates Screen Ur Phencyclidine Scrn Ur Amphetamines Screen U Benzodiazepines Scrn Urine Cocaine Screen U Cannabinoids Screen Plasma/Serum Ethyl Alc Vital Signs Temp Pulse Resp BP Pulse Ox 01/27/17 07:05 110 H 18 113/65 95 01/27/17 06:04 97.9 F 94 H 14 113/65 95 01/27/17 05:23 71 14 95 01/27/17 04:01 87 14 137/98 95 01/27/17 02:58 92 H 14 116/83 93 L 01/27/17 01:57 90 14 96 01/27/17 00:58 88 14 122/86 97 01/26/17 23:18 89 14 119/82 95 01/26/17 22:19 80 14 121/77 94 L 01/26/17 21:12 87 14 129/87 97 01/26/17 20:13 85 18 97 01/26/17 19:10 97.7 F 88 14 122/77 97 01/26/17 17:38 98 H 102/79 98 01/26/17 16:49 92 H 18 111/78 95 01/26/17 15:18 98 H 18 125/69 95 01/26/17 14:03 104 H 16 144/93 92 L 01/26/17 13:53 104 H 95 01/26/17 12:46 105 H 16 111/76 95 01/26/17 11:01 116 H 20 115/66 98 01/26/17 10:11 98.4 F 108 H 14 131/68 98 ketorolac tromethamine * [From Toradol] Allergy (Verified 01/05/17 10:52) SWELLING lamotrigine [From Lamictal] Allergy (Verified 01/05/17 10:52) RASH methocarbamol [From Robaxin] Allergy (Verified 01/05/17 10:52) ANAPHYLAXIS "my tongue swells" Alprazolam [Xanax] 1 mg PO BID 11/01/15 Quetiapine Fumarate [Seroquel] 600 mg PO QHS 07/20/16 Sertraline HCl [Zoloft] 100 mg PO DAILY 10/11/16 Dietary Diet Regular Diet Start WedJan 27 609 I&O 01/26/17 01/27/17 01/28/17 06:59 06:59 06:59 Output Total 20 Balance -20 Laboratory 01/26/17 01/26/17 01/26/17 16:37 16:37 16:37 WBC RBC Hgb Hct MCV MCH MCHC RDW Std Deviation Plt Count MPV Immature Gran % (Auto) Neut % (Auto) Lymph % (Auto) [place] % (Auto) Eos % (Auto) Baso % (Auto) Immature Gran # (Auto) Neut # (Auto) Lymph # (Auto) [place] # (Auto) Eos # (Auto) Baso # (Auto) PT INR Sodium Potassium Chloride Carbon Dioxide Anion Gap BUN Creatinine Estimated GFR/1.73 m2 BUN/Creatinine Ratio Glucose Calculated Osmolality Calcium Magnesium Total Bilirubin AST ALT Alkaline Phosphatase Total Protein Albumin Globulin Albumin/Globulin Ratio Vitamin B12 288 TSH 1.05 Free T4 1.04 Urine Source Urine Color Urine Turbidity Urine pH Ur Specific [place] Urine Protein Ur Glucose (Stick) Ur Ketones (Stick) Urine Blood Urine Nitrite Urine Bilirubin Urobilinogen Dipstick Urine Leukocytes Urine WBC (Auto) Urine RBC (Auto) U Epithel Cells (Auto) Urine Bacteria (Auto) Urine Test Salicylates Urine Opiates Screen Ur Oxycodone Screen Ur Methadone, Qual Acetaminophen Ur Barbiturates Screen Ur Phencyclidine Scrn Ur Amphetamines Screen U Benzodiazepines Scrn Urine Cocaine Screen U Cannabinoids Screen Plasma/Serum Ethyl Alc 01/26/17 01/26/17 01/26/17 16:37 12:28 12:26 WBC RBC Hgb Hct MCV MCH MCHC RDW Std Deviation Plt Count MPV Immature Gran % (Auto) Neut % (Auto) Lymph % (Auto) [place] % (Auto) Eos % (Auto) Baso % (Auto) Immature Gran # (Auto) Neut # (Auto) Lymph # (Auto) [place] # (Auto) Eos # (Auto) Baso # (Auto) PT INR Sodium Potassium Chloride Carbon Dioxide Anion Gap BUN Creatinine Estimated GFR/1.73 m2 BUN/Creatinine Ratio Glucose Calculated Osmolality Calcium Magnesium 1.8 Total Bilirubin AST ALT Alkaline Phosphatase Total Protein Albumin Globulin Albumin/Globulin Ratio Vitamin B12 TSH Free T4 Urine Source Urine Color Urine Turbidity Urine pH Ur Specific [place] Urine Protein Ur Glucose (Stick) Ur Ketones (Stick) Urine Blood Urine Nitrite Urine Bilirubin Urobilinogen Dipstick Urine Leukocytes Urine WBC (Auto) Urine RBC (Auto) U Epithel Cells (Auto) Urine Bacteria (Auto) Urine Test Salicylates Urine Opiates Screen Ur Oxycodone Screen Ur Methadone, Qual Acetaminophen 15.5 50.3 H Ur Barbiturates Screen Ur Phencyclidine Scrn Ur Amphetamines Screen U Benzodiazepines Scrn Urine Cocaine Screen U Cannabinoids Screen Plasma/Serum Ethyl Alc 01/26/17 01/26/17 01/26/17 10:27 10:27 10:25 WBC RBC Hgb Hct MCV MCH MCHC RDW Std Deviation Plt Count MPV Immature Gran % (Auto) Neut % (Auto) Lymph % (Auto) [place] % (Auto) Eos % (Auto) Baso % (Auto) Immature Gran # (Auto) Neut # (Auto) Lymph # (Auto) [place] # (Auto) Eos # (Auto) Baso # (Auto) PT INR Sodium Potassium Chloride Carbon Dioxide Anion Gap BUN Creatinine Estimated GFR/1.73 m2 BUN/Creatinine Ratio Glucose Calculated Osmolality Calcium Magnesium Total Bilirubin AST ALT Alkaline Phosphatase Total Protein Albumin Globulin Albumin/Globulin Ratio Vitamin B12 TSH Free T4 Urine Source CLEAN CATCH Urine Color YELLOW Urine Turbidity CLEAR Urine pH 6.0 Ur Specific [place] 1.029 Urine Protein TRACE A Ur Glucose (Stick) NEGATIVE Ur Ketones (Stick) NEGATIVE Urine Blood NEGATIVE Urine Nitrite NEGATIVE Urine Bilirubin NEGATIVE Urobilinogen Dipstick NORMAL Urine Leukocytes NEGATIVE Urine WBC (Auto) <10 Urine RBC (Auto) <10 U Epithel Cells (Auto) <10 Urine Bacteria (Auto) 1+ Urine Test NEGATIVE Salicylates Urine Opiates Screen NONE DETECTED Ur Oxycodone Screen NONE DETECTED Ur Methadone, Qual NONE DETECTED Acetaminophen Ur Barbiturates Screen NONE DETECTED Ur Phencyclidine Scrn NONE DETECTED Ur Amphetamines Screen NONE DETECTED U Benzodiazepines Scrn PRESUMPTIVE POSITIVE A Urine Cocaine Screen NONE DETECTED U Cannabinoids Screen NONE DETECTED Plasma/Serum Ethyl Alc 01/26/17 01/26/17 01/26/17 10:25 10:25 10:25 WBC RBC Hgb Hct MCV MCH MCHC RDW Std Deviation Plt Count MPV Immature Gran % (Auto) Neut % (Auto) Lymph % (Auto) [place] % (Auto) Eos % (Auto) Baso % (Auto) Immature Gran # (Auto) Neut # (Auto) Lymph # (Auto) [place] # (Auto) Eos # (Auto) Baso # (Auto) PT 10.9 INR 1.03 Sodium Potassium Chloride Carbon Dioxide Anion Gap BUN Creatinine Estimated GFR/1.73 m2 BUN/Creatinine Ratio Glucose Calculated Osmolality Calcium Magnesium Total Bilirubin AST ALT Alkaline Phosphatase Total Protein Albumin Globulin Albumin/Globulin Ratio Vitamin B12 TSH Free T4 Urine Source Urine Color Urine Turbidity Urine pH Ur Specific [place] Urine Protein Ur Glucose (Stick) Ur Ketones (Stick) Urine Blood Urine Nitrite Urine Bilirubin Urobilinogen Dipstick Urine Leukocytes Urine WBC (Auto) Urine RBC (Auto) U Epithel Cells (Auto) Urine Bacteria (Auto) Urine Test Salicylates < 3.00 L Urine Opiates Screen Ur Oxycodone Screen Ur Methadone, Qual Acetaminophen Cancelled Ur Barbiturates Screen Ur Phencyclidine Scrn Ur Amphetamines Screen U Benzodiazepines Scrn Urine Cocaine Screen U Cannabinoids Screen Plasma/Serum Ethyl Alc 01/26/17 01/26/17 10:25 10:25 WBC 8.77 RBC 4.67 Hgb 14.3 Hct 42.6 MCV 91.2 MCH 30.6 MCHC 33.6 RDW Std Deviation 13.4 Plt Count 361 MPV 10.0 Immature Gran % (Auto) 0.0 Neut % (Auto) 68.4 Lymph % (Auto) 23.8 [place] % (Auto) 6.2 Eos % (Auto) 1.4 Baso % (Auto) 0.2 Immature Gran # (Auto) 0.00 Neut # (Auto) 6.00 Lymph # (Auto) 2.09 [place] # (Auto) 0.54 Eos # (Auto) 0.12 Baso # (Auto) 0.02 PT INR Sodium 138 Potassium 4.1 Chloride 100 Carbon Dioxide 23 L Anion Gap 15 BUN 13 Creatinine 0.7 Estimated GFR/1.73 m2 > 60 BUN/Creatinine Ratio 19 Glucose 133 H Calculated Osmolality 278 Calcium 9.4 Magnesium Total Bilirubin 0.25 AST 12 ALT 13 Alkaline Phosphatase 64 Total Protein 7.5 Albumin 4.3 Globulin 3.2 Albumin/Globulin Ratio 1.3 Vitamin B12 TSH Free T4 Urine Source Urine Color Urine Turbidity Urine pH Ur Specific [place] Urine Protein Ur Glucose (Stick) Ur Ketones (Stick) Urine Blood Urine Nitrite Urine Bilirubin Urobilinogen Dipstick Urine Leukocytes Urine WBC (Auto) Urine RBC (Auto) U Epithel Cells (Auto) Urine Bacteria (Auto) Urine Test Salicylates Urine Opiates Screen Ur Oxycodone Screen Ur Methadone, Qual Acetaminophen 79.8 H Ur Barbiturates Screen Ur Phencyclidine Scrn Ur Amphetamines Screen U Benzodiazepines Scrn Urine Cocaine Screen U Cannabinoids Screen Plasma/Serum Ethyl Alc Orders Category Date Time Status Regular Diet Diet 01/26/17 16:39 Completed Regular Diet Diet 01/27/17 06:09 Active ACETAMINOPHEN [TDM] Stat Lab 01/26/17 10:25 Completed ACETAMINOPHEN [TDM] Stat Lab 01/26/17 12:28 Completed ACETAMINOPHEN [TDM] Stat Lab 01/26/17 16:37 Completed ALCOHOL BLOOD Stat Lab 01/26/17 10:25 Completed ALCOHOL BLOOD Stat Lab 01/26/17 16:37 Completed CBC WITH ELECTRONIC DIFF [HEME] Stat Lab 01/26/17 10:25 Completed CMP [COMPREHENSIVE METABOLIC PANEL] [CHEM] Stat Lab 01/26/17 10:25 Completed FREE T4 Stat Lab 01/26/17 16:37 Completed MAGNESIUM [CHEM] Stat Lab 01/26/17 12:26 Completed TEST-URINE [PREG] Stat Lab 01/26/17 10:25 Completed PROTIME WITH INR [COAG] Stat Lab 01/26/17 10:25 Completed SALICYLATES [TDM] Stat Lab 01/26/17 10:25 Completed TSH Stat Lab 01/26/17 16:37 Completed UA NIMS W/REFLEX CULT [URINALYSIS] Stat Lab 01/26/17 10:27 Completed UDS [URINE DRUG SCREEN] Stat Lab 01/26/17 10:27 Completed VITAMIN B12 Stat Lab 01/26/17 16:37 Completed 0.9% Sodium Chloride Inj [Ns] 1,000 ml Med 01/26/17 10:15 Discontinued IV 125 mls/hr Charcoal/Sorbitol Solution [Actidose 50 gm Liquid] Med 01/26/17 10:25 Discontinued 100 gm NG NOW ONE EKG [EKG] Stat Ther 01/26/17 10:29 Draft EKG [EKG] Stat Ther 01/26/17 17:31 Draft (Sayda Li) Departure - Departure Time of Disposition Order: 17:11 Certified Medical Emergency: Emergent <[facility] [place] - Last Filed: 01/26/17 17:38> - Departure Time of Disposition Order: 08:15 Certified Medical Emergency: Emergent <Sayda Li - Last Filed: 01/27/17 08:15> - Departure DIAGNOSIS: Suicidal overdose Qualifiers: Encounter type: initial encounter Qualified Code(s): T50.902A - Poisoning by unspecified drugs, medicaments and biological substances, intentional self-harm , initial encounter Disposition: [facility] Condition: Stable Referrals: None,PCP [Primary Care Provider] - Attestation - Scribe Verification/Attestation Scribe:: [place] Acting as Scribe for:: Dmitry Urbina Scribe documention review:: This chart was documented by a scribe and accurately reflects the service the provider performed and the decisions made by the provider. - Scribe Verification/Attestation #2 Shift Change Time: 18:00 Scribe Name: Agustina Griffin Acting as Scribe for:: Jayce Hewitt <[place] - Last Filed: 01/26/17 17:38> Physician Attestation - Physician Attestation I, the provider, attest to the following statement:: Dmitry Urbina Physician documentation Attestation:: This documentation recorded by the scribe accurately reflects the service I personally performed and the decisions made by me. <[place] [place] - Last Filed: 01/26/17 17:38>
[2017-01-26 11:11] LABS: ACETAMINOPHEN 79.8 ug/mL (10-30); AGAP 15; ALBUMIN 4.3 g/dL (3.5-5.0); ALKALINE PHOSPHATASE 64 U/L (32-104); BUN 13 mg/dL (8-22); CALCIUM 9.4 mg/dL (8.8-10.2); CHLORIDE 100 mmol/L (98-107); COSMO 278; GOT 12 U/L (10-30); GPT 13 U/L (10-36); POTASSIUM 4.1 mmol/L (3.5-5.1); SODIUM 138 mmol/L (136-145); TCO2 23 mmol/L (25-35); TOTAL BILIRUBIN 0.25 mg/dL (0.20-1.00); TOTAL PROTEIN 7.5 g/dL (6.3-8.3)
--- NOTE | 2017-01-26 11:18 | EKG Report ---
Test Performed on : 01/26/2017 10:24:44 AM Test Reason : SI attempt Blood Pressure : / mmHG Vent. Rate : 107 BPM Atrial Rate : 107 BPM P-R Int : 158 ms QRS Dur : 088 ms QT Int : 360 ms P-R-T Axes : 052 068 038 degrees QTc Int : [address] & T wave abnormality, consider anterolateral ischemia Abnormal ECG When compared with ECG of 14-NOV-2016 11:11, QT has lengthened Unconfirmed Result
[2017-01-26 11:50] LABS: UR AMPHETAMINES QUAL NONE DETECTED (NONE DETECT); UR BARBITUATES QUAL NONE DETECTED (NONE DETECT); UR BENZODIAZEPIN QUAL PRESUMPTIVE POSITIVE (NONE DETECT); UR CANNABINOIDS QUAL NONE DETECTED (NONE DETECT); UR COCAINE QUAL NONE DETECTED (NONE DETECT); UR METHADONE QUAL NONE DETECTED (NONE DETECT); UR OPIATES QUAL NONE DETECTED (NONE DETECT); UR OXYCODONE QUAL NONE DETECTED (NONE DETECT); UR PCP QUAL NONE DETECTED (NONE DETECT)
--- NOTE | 2017-01-27 05:34 | EKG Report ---
Test Performed on : 01/26/2017 5:35:11 PM Test Reason : overdose Blood Pressure : / mmHG Vent. Rate : 086 BPM Atrial Rate : 086 BPM P-R Int : 154 ms QRS Dur : 088 ms QT Int : 400 ms P-R-T Axes : 053 048 032 degrees QTc Int : 478 ms Normal sinus rhythm. T wave abnormality, consider anterior ischemia Prolonged QT Abnormal ECG When compared with ECG of 26-JAN-2017 10:24, (Unconfirmed) No significant change was found Unconfirmed Result
[2017-01-27 09:27] VITALS: BP 130/86
== END 2017-01-27 09:45 ==
LOC: EDBD → ED 10:10
DX: T39.1X2A Poisoning by 4-Aminophenol derivatives, intentional self-harm, initial encounter (principal); T45.0X2A Poisoning by antiallergic and antiemetic drugs, intentional self-harm, initial encounter; R94.31 Abnormal electrocardiogram [ECG] [EKG]; M54.9 Dorsalgia, unspecified; F41.9 Anxiety disorder, unspecified; F43.10 Post-traumatic stress disorder, unspecified; F17.210 Nicotine dependence, cigarettes, uncomplicated; Z79.899 Other long term (current) drug therapy; Z71.6 Tobacco abuse counseling; Z98.890 Other specified postprocedural states; Z87.442 Personal history of urinary calculi
CPT/HCPCS: 80053; 81001; 81025; 82607; 83735; 84439; 84443; 85025; 85610; 93005; G0480; J7030; 80320; 80324; 80329; 80345; 80346; 80349; 80353; 80358; 80361; 80365; 83992

== ENCOUNTER 2017-07-16 07:27 | Inpatient (IN) ==
[2017-07-16 08:08] LABS: MANUAL DIFF NEEDED? NO
[2017-07-16 08:11] LABS: BASO% 0.3 % (0.0-0.8); EOS# 0.06 X1000 (0.0-0.7); EOS% 0.4 % (0.0-10.0); HEMATOCRIT 40.3 % (37.0-47.0); HEMOGLOBIN 13.6 g/dL (12.0-16.0); IMM GRAN# 0.06 X1000 (0.0-0.04); IMM GRAN% 0.4 % (0.0-0.5); LYMPH# 2.04 X1000 (1.2-3.4); LYMPH% 13.6 % (20.5-51.1); MCH 30.2 PG (27-31); MCHC 33.7 g/dL (33-37); MCV 89.4 FL (81-99); MONO# 0.74 X1000 (0.11-0.59); MONO% 4.9 % (1.7-9.3); MPV 11.1 FL (7.4-10.4); NEUT% 80.4 % (42.2-75.2); PLT 509 X1000 (130-400); RBC 4.51 XMIL (4.2-5.4)
[2017-07-16] MEDS ORDERED: NS 1,000 ML IV ONE ×3 (08:16→12:19)
[2017-07-16 08:31] LABS: AGAP 15; ALBUMIN 4.7 g/dL (3.5-5.0); ALKALINE PHOSPHATASE 74 U/L (32-104); AMYLASE 34 U/L (20-200); BUN 12 mg/dL (8-22); CALCIUM 9.4 mg/dL (8.8-10.2); CHLORIDE 101 mmol/L (98-107); COSMO 275; GOT 28 U/L (10-30); GPT 16 U/L (10-36); LIPASE 32 U/L (13-60); SODIUM 137 mmol/L (136-145); TCO2 20 mmol/L (25-35); TOTAL PROTEIN 8.7 g/dL (6.3-8.3)
[2017-07-16] MEDS ORDERED: MORPHINE IV ONE (09:22)
[2017-07-16] MEDS ORDERED: ZOFRAN IV ONE ×2 (09:22→10:29)
[2017-07-16] MEDS ORDERED: ZOFRAN ONE (09:24)
[2017-07-16] MEDS ORDERED: MORPHINE ONE (09:24)
--- NOTE | 2017-07-16 10:18 | Diag Imaging Result Doc PS360 ---
EXAM: CT ABD/PELVIS W/ IV CONT ONLY HISTORY: abd pain, n/v TECHNIQUE: Routine CT scan of the abdomen and pelvis with IV contrast. Dose reduction technique. COMPARISON: 07/20/2016 FINDINGS: The lung bases are unremarkable. The liver, spleen, kidneys, pancreas, and adrenal glands appear normal. There is no free fluid or free air. There is no evidence for bowel obstruction. There are some mildly prominent small bowel loops left upper quadrant and pelvis. The appendix and uterus are surgically absent. No inflammatory changes are appreciated. No abscess. There are postsurgical changes upper lumbar spine, L1, L2, and L3 from previous L2 fracture. The fracture site appears ununited, sclerotic, and irregular. Correlate clinically. IMPRESSION: 1.No evidence for obstruction. Minimal small bowel prominence is noted left upper quadrant and pelvis with intervening normal caliber bowel loops. 2.Postsurgical changes lumbar spine from previous L2 fracture appears ununited, irregular, and sclerotic. Correlate clinically. 3.No focal inflammatory change is appreciated. No abscess. Electronically signed by Leah Ferro 07/16/2017 10:15 AM
[2017-07-16 10:57] LABS: URINE CULTURE PL NEEDED? NO
[2017-07-16 11:11] LABS: BILIRUBIN URINE NEGATIVE (NEGATIVE); BLOOD URINE NEGATIVE (NEGATIVE); CLARITY CLEAR (CLEAR); COLOR YELLOW; GLUCOSE URINE NEGATIVE (NEGATIVE); LEUKOCYTES URINE NEGATIVE (NEGATIVE); NITRITE URINE NEGATIVE (NEGATIVE); PROTEIN URINE TRACE mg/dL (NEGATIVE); SP GRAVITY URINE 1.005; UROBILINOGEN URINE NORMAL
[2017-07-16] MEDS ORDERED: FLAGYL 500 MG/NS 500 MG/100 ML IVPB IV ONE (11:21)
[2017-07-16] MEDS ORDERED: DECADRON IV ONE (11:21)
[2017-07-16] MEDS ORDERED: DILAUDID IV ONE (11:22)
[2017-07-16] MEDS ORDERED: SODIUM CHLORIDE 0.9% INJ ONE (11:23)
[2017-07-16] MEDS ORDERED: PHENERGAN IV ONE (11:23)
[2017-07-16 11:38] LABS: URINE EPITHELIAL CELLS >10 /HPF (<10); URINE SOURCE CLEAN CATCH; URINE WBC <10 /HPF (<10)
[2017-07-16] MEDS ORDERED: ZOFRAN IV PRN (12:19)
[2017-07-16 12:28] LABS: UR AMPHETAMINES QUAL NONE DETECTED (NONE DETECT); UR BARBITUATES QUAL NONE DETECTED (NONE DETECT); UR BENZODIAZEPIN QUAL NONE DETECTED (NONE DETECT); UR CANNABINOIDS QUAL NONE DETECTED (NONE DETECT); UR COCAINE QUAL NONE DETECTED (NONE DETECT); UR MDMA QUAL NONE DETECTED (NONE DETECT); UR METHADONE QUAL NONE DETECTED (NONE DETECT); UR METHAMPHETAMINE QUAL NONE DETECTED (NONE DETECT); UR OPIATES QUAL PRESUMPTIVE POSITIVE (NONE DETECT); UR OXYCODONE QUAL NONE DETECTED (NONE DETECT); UR PCP QUAL NONE DETECTED (NONE DETECT); UR TCA QUAL NONE DETECTED (NONE DETECT)
[2017-07-16] MEDS ORDERED: LEVAQUIN 500 MG/D5W 500 MG/100 ML IVPB IV SCH (12:30)
--- NOTE | 2017-07-16 12:31 | PROVIDER DOCUMENTATION ---
This chart was entered by Adam Smalls Scribe, acting as scribe for Jackson Carballo PA. HPI-Abdominal Pain/GI Problem - General Chief Complaint: N/V/D Stated Complaint: VOMITING Time Seen by Provider: 07/16/17 09:20 Source: patient Allergies/Adverse Reactions: Patient Allergies Allergy/AdvReac Type Severity Reaction Status Date / Time cephalexin [From Keflex] Allergy SWELLING Verified 07/16/17 07:39 ketorolac tromethamine * Allergy SWELLING Verified 07/16/17 07:39 [From Toradol] lamotrigine [From Lamictal] Allergy RASH Verified 07/16/17 07:39 methocarbamol [From Robaxin] Allergy ANAPHYLAXIS Verified 07/16/17 07:39 Home Medications: Home Medication List Medication Instructions Recorded Confirmed Last Taken Type Alprazolam [Xanax] 1 mg PO TID 11/01/15 07/06/17 06/25/17 08:00 History Quetiapine Fumarate [Seroquel] 600 mg PO QHS 07/20/16 07/06/17 06/24/17 21:00 History Sertraline HCl [Zoloft] 100 mg PO DAILY 10/11/16 07/06/17 06/24/17 08:00 History Gabapentin [Gabapentin] 600 mg PO 406/25/17 07/06/17 06/24/17 20:00 History Pregabalin [Lyrica] 75 mg PO TID 06/25/17 07/06/17 06/24/17 20:00 History Tapentadol [Nucynta] 75 mg PO TID 06/25/17 07/06/17 06/23/17 21:00 History - History of Present Illness-ABD Nature of Presenting Problems: patient is a 32 y/o F that presents with right sided abdominal pain and n/v/d. history of cronhs, believes it's a flare up. no fever/chill. Abdominal Pain Onset Location: reports: generalized abdomen Pain Radiation: reports: no radiation Quality of Pain: reports: aching, cramping Severity in ED: reports: moderate Onset/Duration: reports: abrupt, 5 days ago, 6 days ago Timing: reports: still present, constant Activities at Onset: reports: none Modifying Factors: improves with: nothing Associated Symptoms: reports: diarrhea, nausea, vomiting. denies: back/neck pain, chest pain, fever/chills, genitourinary problems, shortness of breath Rectal Bleeding: reports: none Rectal Pain: reports: none Emesis Description: reports: clear Similar Symptoms Previously?: Yes Recently seen or treated by another doctor?: No Review of Systems - Adult - REVIEW OF SYSTEMS - ADULT Constitutional: denies: chills, fever Eyes: reports: no symptoms reported Ears, Nose, Mouth & Throat: reports: no symptoms reported Cardiovascular: denies: chest pain, orthopnea, palpitations Respiratory: denies: cough, shortness of breath, wheezing Gastrointestinal: reports: abdominal pain, diarrhea, nausea, vomiting. denies: constipation, rectal bleeding Genitourinary: denies: dysuria, frequency, hematuria Musculoskeletal: reports: no symptoms reported Integumentary: reports: no symptoms reported Neurological: reports: no symptoms reported Psychiatric: reports: no symptoms reported Endocrine: reports: no symptoms reported Hematologic/Lymphatic: reports: no symptoms reported Allergic/Immunologic: reports: no symptoms reported All Other Systems: Reviewed and Negative Past History - Adult - PAST MEDICAL HISTORY-ADULT Review of Records: reports: Old Records Reviewed, Nursing Assessment Review, Medications Reviewed Major Childhood Illnesses: reports: denies history Cardiovascular: reports: CHF Respiratory: reports: asthma, pneumonia Gastrointestinal: reports: Crohn's, colitis, GERD, pancreatitis, polyps (colon) Obstetrical/Gynecological: reports: endometriosis Genitourinary: reports: kidney stones Musculoskeletal: reports: chronic pain (alot to her back), intervertebral disc disease, neck/back injury, orthopedic injury Neurological: reports: denies history Psychiatric: reports: anxiety, ptsd, other (malingering) Endocrine/Immune: reports: denies history Other Conditions: reports: denies history - PRIOR SURGERIES/PROCEDURES Surgical/Procedure History: reports: appendectomy, EGD, hysterectomy, bowel surgery (colon), back/neck (neck Sx), other (dx chrons disease, rotator cuff, polyps removed from colon, sinus surgery to remove MRSA from sinuses at [facility]) - IMMUNIZATION STATUS Childhood Immunizations: See Nurse Assessment Flu Vaccine: See Nurse Assessment - FAMILY HISTORY Family History: reviewed, not pertinent - SOCIAL HISTORY Smoking: cigarettes, less than 1 pack/day Substance Use: none/never Living Situation: family Physical Exam-General - PHYSICAL EXAM-ADULT Initial Vital Signs Reviewed: Yes - CONSTITUTIONAL General Appearance: alert, no apparent distress - EYES Eyes: PERRL/EOMI, pink conjunctivae - HEAD, EARS, NOSE, MOUTH & THROAT HENMT: normocephalic/atraumatic, moist mucous membranes, normal ENT inspection - NECK Neck: full range of motion, normal inspection - RESPIRATORY Respiratory: lungs clear, normal breath sounds, no respiratory distress, no accessory muscle use - CARDIOVASCULAR Cardiovascular: regular rate, rhythm, no edema - GASTROINTESTINAL (ABDOMEN) Abdominal Exam: normal bowel sounds, soft, no organomegaly, no pulsatile mass, tenderness (right flank) - MUSCULOSKELETAL Back Exam: no vertebral tenderness. 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, no motor/sensory deficits - PSYCHIATRIC Psych/Mental Status: normal mood/affect, normal thought content, normal thought process, oriented x 3 Progress - PLAN OF CARE/RESULTS Progress/Plan/Lab Results: Vital Signs - 8 hr 07/16/17 07:37 07/16/17 07:40 Temperature 98.6 F Pulse Rate 60 Pulse Rate [Sitting] 87 Pulse Rate [Standing] 115 H Pulse Rate [Supine] 60 Respiratory Rate 22 Blood Pressure 158/101 Blood Pressure [Sitting] 150/117 Blood Pressure [Standing] 103/93 Blood Pressure [Supine] 158/101 O2 Sat by Pulse Oximetry 98 Laboratory Results - last 24 hr 07/16/17 07/16/17 07:53 07:53 WBC 15.04 H RBC 4.51 Hgb 13.6 Hct 40.3 MCV 89.4 MCH 30.2 MCHC 33.7 RDW Std Deviation 15.2 H Plt Count 509 H MPV 11.1 H Immature Gran % (Auto) 0.4 Neut % (Auto) 80.4 H Lymph % (Auto) 13.6 L [place] % (Auto) 4.9 Eos % (Auto) 0.4 Baso % (Auto) 0.3 Immature Gran # (Auto) 0.06 H Neut # (Auto) 12.10 H Lymph # (Auto) 2.04 [place] # (Auto) 0.74 H Eos # (Auto) 0.06 Baso # (Auto) 0.04 Sodium 137 Potassium 5.0 Chloride 101 Carbon Dioxide 20 L Anion Gap 15 BUN 12 Creatinine 0.6 Estimated GFR/1.73 m2 > 60 BUN/Creatinine Ratio 20 Glucose 121 H Calculated Osmolality 275 Calcium 9.4 Total Bilirubin 0.30 AST 28 ALT 16 Alkaline Phosphatase 74 Total Protein 8.7 H Albumin 4.7 Globulin 4.0 Albumin/Globulin Ratio 1.0 Amylase 34 Lipase 32 Orders Category Date Time Status Saline Loc DIRECTED Care 07/16/17 07:57 Active NPO Diet 07/16/17 07:[address] ABD/PELVIS W/ IV CONT ONLY [CT] Stat Exams 07/16/17 09:22 Ordered AMYLASE [CHEM] Stat Lab 07/16/17 07:53 Completed CBC WITH ELECTRONIC DIFF [HEME] Stat Lab 07/16/17 07:53 Completed COMPREHENSIVE METABOLIC PANEL [CHEM] Stat Lab 07/16/17 07:53 Completed CRP HIGH SENSITIVITY Stat Lab 07/16/17 07:53 Received LIPASE [CHEM] Stat Lab 07/16/17 07:[address] W/POSS RFLX CULT [URINALYSIS] Stat Lab 07/16/17 07:57 Uncollected 0.9% Sodium Chloride Inj [Ns] 1,000 ml Med 07/16/17 08:16 Discontinued IV Wide Open Morphine Med 07/16/17 09:24 Discontinued 4 mg .ROUTE .STK-MED ONE Morphine Med 07/16/17 09:22 Discontinued 4 mg IV NOW ONE Ondansetron [Zofran] Med 07/16/17 09:24 Discontinued 4 mg .ROUTE .STK-MED ONE Ondansetron [Zofran] Med 07/16/17 09:22 Discontinued 4 mg IV NOW ONE Result Diagrams: 07/16/17 07:53 07/16/17 07:53 - CT/MRI 1 CT Study: Abdomen, Pelvis Impression: Abnormal (FINDINGS: The lung bases are unremarkable. The liver, spleen, kidneys, pancreas, and adrenal glands appear normal. There is no free fluid or free air. There is no evidence for bowel obstruction. There are some mildly prominent small bowel loops left upper quadrant and pelvis. The appendix and uterus are surgically absent. No inflammatory changes are appreciated. No abscess. There are postsurgical changes upper lumbar spine, L1, L2, and L3 from previous L2 fracture. The fracture site appears ununited , sclerotic, and irregular. Correlate clinically. IMPRESSION: 1.No evidence for obstruction. Minimal small bowel prominence is noted left upper quadrant and pelvis with intervening normal caliber bowel loops. 2.Postsurgical changes lumbar spine from previous L2 fracture appears ununited, irregular, and sclerotic. Correlate clinically. 3.No focal inflammatory change is appreciated. No abscess.) - CONSULTS/PCP/HOSPITALIST Notification #1 *Consult/PCP/Hospitalist*: Dr. Hurtado (GI) Time Discussed: 11:14 Reason/Comments: Recommend admit to hospital. Will consult. #2 Consult: Dr. Pina / Kelsi CAMPOS (Hospitalists) Time Discussed: 11:20 (Will see pt in the ER at [facility] and arrange for their txfr to [place]. ) Departure - Departure Date of Disposition Decision: 07/16/17 Time of Disposition Decision: 11:15 DIAGNOSIS: Crohn's disease Qualifiers: Gastrointestinal tract location: unspecified location Digestive disease complication type: unspecified complication Qualified Code(s): K50.919 - Crohn' s disease, unspecified, with unspecified complications Disposition: ADMITTED INPATIENT 09 Certified Medical Emergency: Emergent Condition: Stable Referrals and Follow-Ups: Carrillo Araujo DO [Primary Care Provider] - - Critical Care Note This patient required my direct & personal management of CC.: No Attestation - Physician/ [place] Attestation Patient care was provided by Advanced Practice Provider:: Yes Advanced Practice Provider:: Jackson Carballo Advanced Practice Provider documentation review:: The Mid-level provider documentation, treatment plan and medical decision making was reviewed by the physician who agrees with all treatment and medical decision making by the P. The physician spent face to face time with patient:: No Advanced Practice Provider documentation review:: Supervising physician onsite and consulted in the evaluation and care of this patient. The physician did not have a face to face encounter with the patient. This chart was documented by the indicated scribe, (Adam Smalls, [place]) and accurately reflects the services I performed and decisions made by me, Jackson Carballo PA, as attested by the provider's signature.
[2017-07-16] MEDS ORDERED: NS 1,000 ML ONE (12:41)
--- NOTE | 2017-07-16 14:33 | HISTORY AND PHYSICAL ---
CHIEF COMPLAINT: Abdominal pain, nausea, vomiting, diarrhea. HISTORY OF PRESENT ILLNESS: This is a 32-year-old female with a history of Crohn's, who presents with 5 days of nausea, vomiting, diarrhea and abdominal pain. She states that it had a sudden onset. It has stayed about the same throughout these days. She feels she cannot take this anymore. She has kept very little p.o. intake down. She denies any known sick contacts. No camping. No eating or drinking different foods than normal. She denies any black or bloody vomitus or stools. Her last bowel movement was this morning. It was diarrhea. She was found to be orthostatic with a supine heart rate of 60 and a standing of 115. She states she is symptomatic when she stands, being dizzy and weak all over. She does state she has had subjective fevers having alternating chills and sweating. She was noted to have a white count of 15, and her CT of the abdomen and pelvis showed minimal small bowel prominence in the left upper quadrant but with normal caliber loops and no abscess. No focal inflammatory process. She was given 2 L of IV fluid as well as pain and nausea medication, and she is being admitted for further evaluation and treatment. PAST MEDICAL HISTORY: Crohn's disease, anxiety, chronic back pain, history of suicidal ideation and seizures with Xanax withdrawal. PAST SURGICAL HISTORY: Back surgery, neck surgery, colon polyps removed, appendectomy, hysterectomy. SOCIAL HISTORY: She smokes a pack a day. She denies alcohol or illicit drug use. ALLERGIES: Keflex which causes swelling. Toradol which causes swelling. Lamictal causes a rash and Robaxin causes anaphylaxis. HOME MEDICATIONS: A list will be obtained. REVIEW OF SYSTEMS: A 14-point review of systems is discussed with the patient with pertinent positives stated in HPI. She denied chest pain, palpitations, syncope, cough, PND, orthopnea, night sweats, black or bloody vomitus, black or bloody stools, hematuria, dysuria, frequency urgency. PHYSICAL EXAMINATION: GENERAL: This is a 32-year-old female who is lying in the bed in mild distress. VITAL SIGNS: Blood pressure is 142/82 with a heart rate of 57, respirations are 16, temperature is 98.6 degrees with saturations of 99% and 98% on room air. HEENT: Head is normocephalic, atraumatic. Pupils equal, round, react to light. EOMs are intact. Sclerae anicteric. Mucous membranes are dry. NECK: Supple. Trachea midline. CARDIOVASCULAR: Regular rate and rhythm. S1 and S2 appreciated. PULMONARY: Breath sounds are clear with no increased work of breathing noted. GASTROINTESTINAL: Abdomen is distended with bowel sounds in all 4 quadrants. EXTREMITIES: No clubbing, cyanosis, or edema. Calves are nontender. Pulses are palpable x4. NEUROLOGIC: She is alert and oriented with cranial nerves 2-12 grossly intact. LABORATORY DATA: WBC is 15 with a hemoglobin 13.6, hematocrit 40 and platelets of 509,000. Sodium is 137, potassium 5. BUN 12, creatinine 0.6, and glucose of 121. Urinalysis is 6 and negative. Urine drug screen is presumptive positive for opiates which the patient does not take. CT of the abdomen and pelvis: Minimal small bowel prominence in the left upper quadrant and pelvis with intervening normal caliber bowel loops. No evidence for obstruction. Post surgical changes lumbar spine from previous L2 fracture which is ununited, irregular, and sclerotic with no focal inflammatory change and no abscess. ASSESSMENT AND PLAN: 1. Crohn's flare. 2. Nausea, vomiting, diarrhea. 3. Abdominal pain. 4. Subjective fevers. 5. Anxiety. 6. Tobacco abuse and use. PLAN: She will be admitted to the hospital and placed on telemetry. We will transfer her over to [facility] for GI consult and care. We will give IV hydration as well as IV pain and nausea medication with antibiotic coverage of Flagyl and Levaquin. She does take chronic benzodiazepines as she has had seizures in the past from withdrawal. We will give a low-dose Xanax to avoid withdrawal. We will start Protonix. Of course, she will remain n.p.o. we will trend her labs daily. For DVT prophylaxis, we will at present use SCDs. Further treatments pending hospital course. Dictated by BETH Yanez for Leonel Pina MD cc: BETH Yanez MD
[2017-07-16] MEDS ORDERED: DILAUDID IV PRN (15:38)
[2017-07-16] MEDS: PHENERGAN IV PRN (15:48)
[2017-07-16] MEDS: DILAUDID IV PRN ×2 (17:19→21:31)
[2017-07-16] MEDS: FLAGYL 500 MG/NS 500 MG/100 ML IVPB IV SCH (17:23)
[2017-07-16] MEDS: XANAX PO PRN (19:50)
[2017-07-16] MEDS ORDERED: BENADRYL PO ONE (20:25)
[2017-07-17] MEDS: SOLU-MEDROL IV SCH ×2 (00:29→22:58)
[2017-07-17] MEDS: FLAGYL 500 MG/NS 500 MG/100 ML IVPB IV SCH ×5 (00:29→22:58)
[2017-07-17] MEDS: PROTONIX IV SCH ×3 (00:29→22:57)
[2017-07-17] MEDS: SODIUM CHLORIDE 0.9% INJ SCH ×2 (00:29→22:57)
[2017-07-17] MEDS: DILAUDID IV PRN ×5 (01:52→23:07)
--- NOTE | 2017-07-17 04:17 | CONSULTATION ---
DATE OF CONSULTATION: 07/16/2017 REFERRING PHYSICIAN: Leonel Pina M.D. PRIMARY CARE PROVIDER: Carrillo Araujo D.O. PRIMARY FRENCH TEACHER: Yoav Santana M.D. INDICATION FOR CONSULTATION: 1. Nausea with vomiting. 2. Abdominal pain. 3. Diarrhea. 4. Blood in stool. 5. History of Crohn's disease. HISTORY OF PRESENT ILLNESS: The patient is a 32-year-old, white female who has Crohn's disease. She states that she has done well in that her last flare of colitis was approximately 2 years ago. Five days prior to admission, she developed nausea with vomiting, diarrhea, and abdominal pain. This is similar to her previous episodes of Crohn's exacerbation. Because of her symptoms, she presented to the emergency room, where she was found to be relatively hypotensive, orthostatic and tachycardic. She reports subjective fever and chills as well as sweating. Although the CT scan was negative, her clinical symptoms are consistent with a Crohn's flare and her CRP is elevated. She is admitted for further evaluation and treatment. PAST MEDICAL HISTORY: 1. Crohn's disease. 2. Anxiety. 3. Chronic back pain. 4. Suicidal ideation. 5. Depression. 6. Seizures was Xanax withdrawal. 7. History of colon polyps PAST SURGICAL HISTORY: 1. Back surgery. 2. Neck surgery. 3. Colonoscopy. 4. Appendectomy. 5. Hysterectomy. SOCIAL HISTORY: Positive for tobacco use. She currently smokes 1 pack per day. She denies alcohol or illicit drug use. She is she lives with her partner who was in the room at bedside. MEDICATION ALLERGIES: 1. Keflex. 2. Toradol. 3. Lamictal. 4. Robaxin. HOME MEDICATION: 1. [place] 7.5. 2. Tizanidine. 3. Xanax. 4. Lyrica. 5. Gabapentin. 6. Zoloft. 7. Seroquel. 8. Nucynta. REVIEW OF SYSTEMS: Remarkable for nausea with vomiting, heartburn, indigestion , diffuse abdominal pain, diarrhea with greater than 10 bowel movements per day and nocturnal stools. In addition, she reports bright red blood in her stool. PHYSICAL EXAMINATION: General: On exam, she is an ill-appearing white female but in no acute distress. Vital Signs: Her blood pressure is 135/72, pulse 68, respiration 19, temperature of 98.9 degrees. Her oxygen is 98% on room air. HEENT: Notable for the absence of jaundice. Her conjunctivae are slightly pale. Her oropharyngeal mucosa membranes are dry. Neck: Supple. Chest: Clear. Abdomen: Her abdominal exam reveals hypoactive bowel sounds. The abdomen is soft, but diffusely tender with no rebound or guarding. Extremities: Negative for cyanosis, clubbing, or edema. OBJECTIVE DATA: Reveals a hemoglobin of 13.6 with hematocrit of 40.3, and a white count of 15.04. She has 509,000 platelets. Sodium is 137, potassium 5.0, chloride 101, CO2 20, BUN 12, creatinine 0.6 with a glucose of 120. Calcium is 9.4, total bilirubin 0.30, AST 28, ALT 16 , alkaline phosphatase 74, total protein 8.7, albumin 4.7. Her CRP is elevated at 10.67. Amylase is 34 with a lipase of 32. Her plasma lactate is 1.0. Her urinalysis is negative for white blood cells as well as urine . Her urine toxicology screen is only positive for opioids which are consistent with her history of [place] use. IMPRESSION: 1. Nausea with vomiting. 2. Abdominal pain. 3. Diarrhea. 4. Blood in the stool. 5. History of Crohn's disease. 6. History of colon polyps. RECOMMENDATION: 1. The patient is currently receiving Levaquin and Flagyl for presumed acute colitis. I agree and recommend continuing this treatment. 2. Because of the nausea with vomiting, I would begin Protonix 40 mg IV q.12 hours. 3. She has a history of Crohn's disease and would benefit from Solu-Medrol 40 mg IV q.24 hours. 4. She will most likely need an EGD and colonoscopy next week. 5. I will defer to Dr. Yoav Santana, who will return on Wednesday to determine the timing for any endoscopic intervention. 6. Please obtain stool studies for C. difficile colitis, lactoferrin, ova and parasite, and fecal white blood cell, and fecal calprotectin. 7. We will continue to follow along with you. cc: MD Yoav Cheema MD Gregory S. Cheatham, MD Thomas E. Lockard, DO MTDD
[2017-07-17 07:33] LABS: HEMATOCRIT 36.9 % (37.0-47.0); HEMOGLOBIN 12.1 g/dL (12.0-16.0); MCH 30.9 PG (27-31); MCHC 32.8 g/dL (33-37); MCV 94.1 FL (81-99); RBC 3.92 XMIL (4.2-5.4)
[2017-07-17 08:06] LABS: AGAP 14; ALBUMIN 4.3 g/dL (3.5-5.0); ALKALINE PHOSPHATASE 65 U/L (32-104); BUN 12 mg/dL (8-22); CALCIUM 9.3 mg/dL (8.8-10.2); CHLORIDE 103 mmol/L (98-107); COSMO 283; GOT 9 U/L (10-30); GPT 11 U/L (10-36); MAGNESIUM 2.3 mg/dL (1.5-2.7); POTASSIUM 4.7 mmol/L (3.5-5.1); SODIUM 141 mmol/L (136-145); TCO2 24 mmol/L (25-35); TOTAL BILIRUBIN 0.12 mg/dL (0.20-1.00)
[2017-07-17] MEDS: ZOLOFT PO SCH (10:24)
[2017-07-17] MEDS: LYRICA PO SCH ×3 (10:25→22:55)
[2017-07-17] MEDS: XANAX PO SCH ×3 (10:25→22:55)
[2017-07-17] MEDS: XANAX PO PRN ×2 (13:10→18:41)
[2017-07-17] MEDS: PHENERGAN IV PRN (13:10)
--- NOTE | 2017-07-17 16:33 | PROGRESS NOTE ---
DATE: 07/17/2017 SUBJECTIVE: This patient is still complaining of abdominal pain. She denies nausea, vomiting. She is still having diarrhea. The plan is to continue with the treatment and probably get an endoscopy done at the beginning of the next week. This patient states that every time she uses Levaquin she has a rash, so I will stop this because apparently she is allergic to this medication, and I will start this patient on Merrem. OBJECTIVE: Vital Signs: Temperature 98 degrees, pulse 52, respiratory rate 19, blood pressure 145/65, oxygen saturation 98 on room air. HEENT: Head normocephalic. No trauma. PERRLA. Neck: Supple. No JVD. No masses. Central trachea. Chest: Clear to auscultation. No wheezing. No rales. Cardiovascular: RRR. No murmurs. Abdomen: Soft. Moderate tenderness to palpation at the level of the epigastric area and periumbilical area. Extremities: No edema. No clubbing. No cyanosis. Neurological examination: The patient is alert and oriented x3. No focal neurological deficits. LABORATORY: WBC 12.2, hemoglobin 12.1, hematocrit 36.9, platelets 375. Sodium 141, potassium 4.7, chloride 103, bicarbonate 24. BUN 12, creatinine 0.8, glucose 133, calcium 9.3. AST 9, ALT 11, alkaline phosphatase 65, albumin 4.3. ASSESSMENT AND PLAN: 1. Crohn disease with a Crohn flare. Will continue with steroids and antibiotics. I have switched the Levaquin for meropenem because of allergies. She is still complaining of abdominal pain. Probably this patient will have an endoscopy done at the beginning of the next week. 2. Nausea and vomiting and diarrhea. The nausea and vomiting is better. She continues with diarrhea. We will continue to monitor. Abdominal pain as above. 3. Anxiety. Continue with her home medications. 4. Tobacco abuse. This patient has been highly advised against tobacco use. I will continue with daily cessation education. cc: Sudeep Carlos MD
[2017-07-17] MEDS: MERREM 1 GM in NS 50 ML IV SCH (17:00)
--- NOTE | 2017-07-17 20:20 | PROGRESS NOTE ---
DATE: 07/17/2017 SUBJECTIVE: The patient states that she feels considerably better today after receiving IV Solu- Medrol, Flagyl and meropenem. However, she continues to have abdominal pain and diarrhea. She denies blood per rectum. EXAM: Her blood pressure is 124/67, pulse 82, respiration 19, temperature of 98.3 degrees. Her abdomen is soft but diffusely tender. There is no rebound or guarding. OBJECTIVE DATA: Reveals a hemoglobin of 12.1 with hematocrit of 36.9 and a white count of 12.22. She has 375,000 platelets. Sodium 141, potassium 4.7, chloride 103, CO2 24, BUN 12, creatinine 0.6, glucose of 133. Calcium is 9.3, magnesium 2.3, total bilirubin 0.12, AST 9 , ALT 11, alkaline phosphatase 65, total protein 7.0, albumin 4.3. Her CRP has decreased to 7.19 and her lipase is 26. RECOMMENDATION: 1. The patient has a history of having an adverse reaction to Levaquin. It was changed by Dr. Ocampo to meropenem and Levaquin was added to her list of allergies. Therefore , I have continued the course of meropenem and Flagyl. I suspect she will need an EGD and colonoscopy next week. I will defer to Dr. Yoav Santana who returns on Wednesday. 2. The nausea and vomiting have improved. I would continue supportive care. 3. Continue IV Solu-Medrol 40 mg IV q.24 hours. 4. Stool studies are pending and we await those results. 5. Continue to monitor the hemoglobin and hematocrit and transfuse as indicated. 6. Additional recommendations to follow based on her clinical course. cc: MD Yoav Roca MD Thomas Lockard, DO [place]
[2017-07-17] MEDS: SEROQUEL PO SCH (22:55)
[2017-07-18] MEDS: MERREM 1 GM in NS 50 ML IV SCH ×3 (00:33→15:51)
[2017-07-18] MEDS: DILAUDID IV PRN ×3 (03:31→22:00)
[2017-07-18] MEDS: XANAX PO PRN ×2 (03:31→18:42)
[2017-07-18] MEDS: PHENERGAN IV PRN ×2 (03:31→18:42)
[2017-07-18] MEDS: FLAGYL 500 MG/NS 500 MG/100 ML IVPB IV SCH ×2 (04:47→12:13)
[2017-07-18 07:03] LABS: BASO% 0.1 % (0.0-0.8); EOS# 0.04 X1000 (0.0-0.7); EOS% 0.3 % (0.0-10.0); HEMATOCRIT 37.7 % (37.0-47.0); HEMOGLOBIN 12.2 g/dL (12.0-16.0); IMM GRAN# 0.06 X1000 (0.0-0.04); IMM GRAN% 0.5 % (0.0-0.5); LYMPH# 1.17 X1000 (1.2-3.4); LYMPH% 9.9 % (20.5-51.1); MANUAL DIFF NEEDED? NO; MCHC 32.4 g/dL (33-37); MCV 92.6 FL (81-99); MONO% 3.4 % (1.7-9.3); MPV 11.5 FL (7.4-10.4); NEUT% 85.8 % (42.2-75.2); PLT 322 X1000 (130-400); RBC 4.07 XMIL (4.2-5.4)
[2017-07-18 07:26] LABS: AGAP 14; ALBUMIN 4.2 g/dL (3.5-5.0); ALKALINE PHOSPHATASE 63 U/L (32-104); BUN 18 mg/dL (8-22); CALCIUM 9.4 mg/dL (8.8-10.2); CHLORIDE 102 mmol/L (98-107); COSMO 282; GOT 12 U/L (10-30); GPT 10 U/L (10-36); POTASSIUM 4.6 mmol/L (3.5-5.1); SODIUM 140 mmol/L (136-145); TCO2 24 mmol/L (25-35)
[2017-07-18] MEDS ORDERED: DILAUDID IV PRN ×2 (07:55→15:36)
[2017-07-18] MEDS: ZOLOFT PO SCH (10:13)
[2017-07-18] MEDS: XANAX PO SCH ×3 (10:13→22:00)
[2017-07-18] MEDS: LYRICA PO SCH ×3 (10:13→22:00)
[2017-07-18] MEDS: PROTONIX IV SCH ×2 (10:13→22:00)
--- NOTE | 2017-07-18 12:38 | PROGRESS NOTE ---
DATE: 07/18/2017 SUBJECTIVE: This patient is still complaining of abdominal pain but compared with yesterday apparently she feels a little bit better, so I will decrease the frequency of her pain medication. So far, she denies nausea, vomiting, or diarrhea. No blood. Yesterday I switched the Levaquin to meropenem because she had an allergy to Levaquin. She started having rash but today she feels better. OBJECTIVE: Vital Signs: Temperature 98.5 degrees, pulse 102, blood pressure 115/53, oxygen saturation 94% on room air. HEENT: Head normocephalic. No trauma. PERRLA. Neck: Supple. No JVD. No masses. Central trachea. Chest: Clear to auscultation. No wheezing. No rales. Abdomen: Soft. Tender to palpation at the level of the epigastric area and periumbilical area. Extremities: No edema. No clubbing. No cyanosis. Neurological: The patient is alert and oriented x3. No focal neurological deficits. LABORATORY: WBC 11.8, hemoglobin 12.2, hematocrit 37.7, platelets 322,000. Sodium 140, potassium 4.6, chloride 102, bicarbonate 24, BUN 18, creatinine 0.7, glucose 114, calcium 9.4. ASSESSMENT AND PLAN: 1. Crohn disease with Crohn flare. Will continue with steroids and antibiotics. She feels a little bit better. The pain is improving. I will decrease the frequency of her pain medication. Gastroenterology department is following this patient closely. 2. Nausea, vomiting, and diarrhea. She is not complaining today of nausea, vomiting or diarrhea. We will continue to monitor. 3. Anxiety. Continue with her home medications. 4. Tobacco abuse. This patient has been highly advised against tobacco use and abuse. I will continue with daily cessation education. cc: Sudeep Carlos MD
[2017-07-18] MEDS: NUCYNTA PO SCH (18:41)
--- NOTE | 2017-07-18 18:48 | PROGRESS NOTE ---
DATE: 07/18/2017 SUBJECTIVE: The patient continues to have abdominal pain and nausea. She denies the presence of diarrhea, nausea or vomiting. She has improved considerably with steroids and IV antibiotics. EXAM: Blood pressure is 115/53, pulse of 102, respiration 19, temperature of 98.5 degrees. Her abdomen is soft but diffusely tender. There is no rebound or guarding. OBJECTIVE DATA: Remarkable for hemoglobin of 12.2 with hematocrit of 37.7 and a white count of 11.80. She has 322,000 platelets. Sodium is 140, potassium 4.6, chloride 102, CO2 24, BUN 18, creatinine 0.7, glucose 114. Calcium is 9.4, total bilirubin 0.20, AST 12, ALT 10, alkaline phosphatase 63, CRP 3.48, total protein 7.0 and albumin 4.2. RECOMMENDATION: 1. I would continue therapy with IV meropenem, IV Flagyl and IV Solu-Medrol. 2. I would continue IV Protonix as that has resulted in improvement in the nausea with vomiting. 3. Dr. Yoav Santana will return in the morning. He will determine if she needs endoscopic intervention at that time. cc: MD Yoav Gifford MD [facility]
[2017-07-18] MEDS ORDERED: NUCYNTA PO SCH (19:00)
[2017-07-18] MEDS: SOLU-MEDROL IV SCH (22:00)
[2017-07-18] MEDS: SEROQUEL PO SCH (22:00)
[2017-07-18] MEDS: SODIUM CHLORIDE 0.9% INJ SCH (22:00)
[2017-07-19] MEDS: FLAGYL 500 MG/NS 500 MG/100 ML IVPB IV SCH ×5 (01:42→22:32)
[2017-07-19] MEDS: DILAUDID IV PRN ×4 (04:08→21:50)
[2017-07-19] MEDS: MERREM 1 GM in NS 50 ML IV SCH ×3 (04:08→20:52)
[2017-07-19] MEDS: PHENERGAN IV PRN ×5 (04:09→23:52)
[2017-07-19] MEDS: XANAX PO PRN ×2 (05:22→19:06)
[2017-07-19 06:23] LABS: MANUAL DIFF NEEDED? NO
[2017-07-19 06:29] LABS: BASO% 0.2 % (0.0-0.8); EOS# 0.01 X1000 (0.0-0.7); EOS% 0.1 % (0.0-10.0); HEMATOCRIT 39.4 % (37.0-47.0); IMM GRAN# 0.08 X1000 (0.0-0.04); IMM GRAN% 0.7 % (0.0-0.5); LYMPH# 1.38 X1000 (1.2-3.4); MCH 30.2 PG (27-31); MCV 91.6 FL (81-99); MONO# 0.38 X1000 (0.11-0.59); MONO% 3.3 % (1.7-9.3); NEUT% 83.7 % (42.2-75.2); PLT 387 X1000 (130-400)
[2017-07-19 06:55] LABS: AGAP 16; ALBUMIN 3.7 g/dL (3.5-5.0); ALKALINE PHOSPHATASE 75 U/L (32-104); BUN 15 mg/dL (8-22); CALCIUM 9.5 mg/dL (8.8-10.2); CHLORIDE 100 mmol/L (98-107); COSMO 283; GOT 11 U/L (10-30); GPT 12 U/L (10-36); POTASSIUM 4.4 mmol/L (3.5-5.1); SODIUM 140 mmol/L (136-145); TCO2 24 mmol/L (25-35); TOTAL PROTEIN 6.5 g/dL (6.3-8.3)
[2017-07-19] MEDS: LYRICA PO SCH ×3 (09:49→22:32)
[2017-07-19] MEDS: NUCYNTA PO SCH ×3 (09:50→19:01)
[2017-07-19] MEDS: ZOLOFT PO SCH (09:50)
[2017-07-19] MEDS: XANAX PO SCH ×3 (09:50→21:04)
[2017-07-19] MEDS: PROTONIX IV SCH ×2 (09:52→22:33)
--- NOTE | 2017-07-19 14:23 | PROGRESS NOTE ---
DATE: 07/19/2017 SUBJECTIVE: This patient still complaining of abdominal pain and she had an episode of diarrhea today in the morning. She did not see any blood on it. She denies nausea, vomiting, she is still smoking even during this hospitalization. The last time she smoked was yesterday, I told her that I can provide a nicotine patch but she told me she is allergic to these, and of course she was told that she cannot smoke here. OBJECTIVE: Vital Signs: Temperature 98.3 degrees, pulse 90, respiratory rate 20, blood pressure 106/75, oxygen saturation 96 on room air. HEENT: Head normocephalic. No trauma. PERRLA. Neck: Supple. No JVD. No masses. Central trachea. Chest: Clear to auscultation. No wheezing. No rales. Abdomen: Soft, tender to palpation at the level of the epigastric and periumbilical area. No rebound. Extremities: No edema. No clubbing. No cyanosis. Neurological: The patient is alert and oriented x3. No focal deficits. LABORATORY: WBC 11.5, hemoglobin 13, hematocrit 39.4, platelets 387,000. Sodium 140, potassium 4.4, chloride 100, bicarbonate 24, BUN 15, creatinine 0.7, glucose 157, calcium 9.5, albumin 3.7. ASSESSMENT AND PLAN: 1. Crohn disease with flare. Will continue with antibiotics and steroids. She feels a little bit better but she is still having pain and today she had diarrhea, pending Gastroenterology evaluation to see if we need to scope this patient. 2. Nausea and vomiting. She is not complaining today of nausea and vomiting. Will continue to monitor. 3. Anxiety. Continue with home medications. 4. Tobacco abuse. This patient has been highly advised against tobacco abuse and use, she is still smoking and I offered a nicotine patch but she states that she is allergic to this, I will continue with daily cessation education. cc: Sudeep Carlos MD
--- NOTE | 2017-07-19 18:10 | PROGRESS NOTE ---
DATE: 07/19/2017 SUBJECTIVE: The patient was seen over the weekend by Dr. Hurtado. She was admitted with nausea, vomiting, and abdominal pain. There was a question about possible Crohn's flare. From our records the patient was seen back in 2013 when she was in the hospital where a CT scan had shown colitis. A colonoscopy was done in 2013 that was normal. She had also had a colonoscopy by Dr. Berman in 2008 that was normal. The patient states she has never been on medication for Crohn's disease or ulcerative colitis. She felt like she had a stomach virus but was not getting better. Symptoms persisted for over 5 days so she came in to the hospital for evaluation. She had an abdominal/pelvis CT scan that showed some mild prominent small bowel loops in the left upper quadrant. There was no evidence of obstruction. She has been treated with steroids and antibiotics. Today, she states her symptoms are improving. She has not noted any blood in the stool today although she did see some blood in the stool previously. Her diarrhea is improving. OBJECTIVE: Vital Signs: Temperature 98.5 degrees, pulse 87, respirations 20, blood pressure 131/58. General: Patient is awake, she is walking around in the room. She is in no acute distress. HEENT: Normocephalic, atraumatic. Pupils equal, round, reactive to light. Sclerae nonicteric. Respiratory: Lung sounds essentially clear bilaterally. Abdomen: Soft, with some mild tenderness diffusely. Positive bowel sounds. Extremities: No lower extremity edema noted. DIAGNOSTIC RESULTS: Laboratory/hematology: White count 11.50, hemoglobin 13.0 , hematocrit 39.4, MCV 91.6. Chemistry: Sodium 140, potassium 4.4, chloride 100, CO2 24, BUN 15, creatinine 0.7, glucose 157, total bilirubin 0.10, AST 11, ALT 12 alkaline phosphatase 75. On admission, her C- reactive protein was 10.67. It is 3.41 today. Amylase 34, lipase 32. ASSESSMENT AND PLAN: 1. Abdominal pain, nausea, vomiting, and diarrhea. 2. CT scan showing inflammation of small bowel loops. 3. Chronic pain. 4. Anxiety. 5. Tobacco abuse. PLAN: Continue symptomatic treatment and supportive care. Continue antibiotics. At this time we will consider this infectious colitis. She does not have a definitive diagnosis of Crohn's disease or ulcerative colitis. We will continue to follow and as long as her symptoms are improving, she can be discharged to follow up with us as an outpatient when appropriate by the hospitalist service. May consider a CT angiogram or MR enterography for further evaluation. I have discussed this case with Dr. Santana. Further plans will be made by him as needed. Dictated by BETH Hensley for Yoav Santana MD cc: BETH Gurrola MD [facility]
[2017-07-19] MEDS: SEROQUEL PO SCH (20:53)
[2017-07-19] MEDS: SOLU-MEDROL IV SCH (22:33)
[2017-07-19] MEDS: SODIUM CHLORIDE 0.9% INJ SCH (22:34)
[2017-07-19] MEDS: SODIUM CHLORIDE 0.9% INJ PRN (23:52)
[2017-07-20] MEDS: MERREM 1 GM in NS 50 ML IV SCH ×3 (04:22→21:05)
[2017-07-20] MEDS: DILAUDID IV PRN ×3 (04:23→22:38)
[2017-07-20] MEDS: FLAGYL 500 MG/NS 500 MG/100 ML IVPB IV SCH ×4 (05:14→22:45)
[2017-07-20] MEDS: XANAX PO PRN (05:48)
[2017-07-20] MEDS: SODIUM CHLORIDE 0.9% INJ PRN (05:50)
[2017-07-20] MEDS: PHENERGAN IV PRN ×4 (05:51→21:05)
[2017-07-20 06:36] LABS: MANUAL DIFF NEEDED? NO
[2017-07-20 06:44] LABS: BASO% 0.1 % (0.0-0.8); HEMATOCRIT 38.5 % (37.0-47.0); HEMOGLOBIN 12.8 g/dL (12.0-16.0); IMM GRAN# 0.11 X1000 (0.0-0.04); IMM GRAN% 0.8 % (0.0-0.5); LYMPH# 1.53 X1000 (1.2-3.4); LYMPH% 11.1 % (20.5-51.1); MCH 30.4 PG (27-31); MCHC 33.2 g/dL (33-37); MCV 91.4 FL (81-99); MONO# 0.54 X1000 (0.11-0.59); MONO% 3.9 % (1.7-9.3); MPV 10.7 FL (7.4-10.4); NEUT% 84.1 % (42.2-75.2); PLT 411 X1000 (130-400); RBC 4.21 XMIL (4.2-5.4)
[2017-07-20 07:13] LABS: AGAP 15; ALBUMIN 3.8 g/dL (3.5-5.0); ALKALINE PHOSPHATASE 81 U/L (32-104); BUN 15 mg/dL (8-22); CALCIUM 8.8 mg/dL (8.8-10.2); CHLORIDE 100 mmol/L (98-107); COSMO 283; GOT 10 U/L (10-30); GPT 10 U/L (10-36); POTASSIUM 4.4 mmol/L (3.5-5.1); SODIUM 140 mmol/L (136-145); TCO2 25 mmol/L (25-35); TOTAL BILIRUBIN < 0.10 mg/dL (0.20-1.00); TOTAL PROTEIN 6.6 g/dL (6.3-8.3)
[2017-07-20] MEDS ORDERED: DILAUDID IV PRN (08:27)
[2017-07-20] MEDS: ZOLOFT PO SCH (08:33)
[2017-07-20] MEDS: LYRICA PO SCH ×3 (08:33→21:03)
[2017-07-20] MEDS: NUCYNTA PO SCH ×3 (08:33→18:53)
[2017-07-20] MEDS: XANAX PO SCH ×3 (08:33→21:04)
[2017-07-20] MEDS: PROTONIX IV SCH ×2 (10:02→22:37)
[2017-07-20] MEDS: NS 1,000 ML IV SCH (11:22)
--- NOTE | 2017-07-20 12:44 | PROGRESS NOTE ---
DATE: 07/20/2017 SUBJECTIVE: Patient states she feels worse today. She is having dark diarrhea and abdominal pain. OBJECTIVE: Vital Signs: Temperature 98.7, pulse 97, respirations 18, blood pressure 111/70. General: Patient is awake, alert, no acute distress. HEENT: Normocephalic, atraumatic. Pupils equal, round, reactive to light. Sclerae nonicteric. Respiratory: Lung sounds essentially clear bilaterally. Abdomen: With tenderness on palpation. DIAGNOSTIC RESULTS/LABORATORY: Hematology: White count 13.75, hemoglobin 12.8 , hematocrit 38.5, MCV 91.4. Platelets 411. Chemistry: Sodium 140, potassium 4.4, chloride 100, CO2 of 25, BUN 15, creatinine 0.7, glucose 146. ASSESSMENT AND PLAN: 1. Nausea and vomiting. 2. Diarrhea. 3. Abdominal pain. PLAN: We will change her steroids to prednisone 30 mg by mouth daily instead of IV. Add dicyclomine 3 times a day. Check IGA for celiac disease. Further plans to be made according to her progress. I have discussed this case with Dr. Santana. Dictated by BETH Hensley for Yoav Santana MD cc: BETH Gurrola MD [facility]
--- NOTE | 2017-07-20 13:15 | PROGRESS NOTE ---
DATE: 07/20/2017 SUBJECTIVE: This patient is complaining today of diarrhea, at least more than 5 bowel movements. The abdominal pain is a little bit better, but she is still having abdominal pain around her umbilical area and epigastric area. She denies nausea, vomiting. OBJECTIVE: Vital Signs: Temperature 98.7 degrees, pulse 97, respiratory rate 18, blood pressure 111/70. O2 saturation 97% on room air. HEENT: Head normocephalic. No trauma. PERRLA. Neck supple. No JVD. No masses. Central trachea. Chest clear to auscultation. No wheezing. No rales. Abdomen is soft, mild tenderness to palpation at the level of the epigastric area and periumbilical area. Extremities: No edema. No clubbing. No cyanosis. Neurologic: The patient is alert and oriented x3. No focal deficits. LABORATORY: WBC 13.7, hemoglobin 12.8, hematocrit 38.5, platelets 411,000. Sodium 140, potassium 4.4, chloride 100, bicarbonate 25. BUN 15, creatinine 0.7, glucose 146, calcium 8.8. ASSESSMENT AND PLAN: 1. Abdominal pain and diarrhea. Apparently, this patient does not have a definite diagnosis of inflammatory bowel disease. The Gastroenterology Department is following this patient. We will continue with antibiotics. The steroids have been switched to p.o. instead of IV. This patient will start receiving dicyclomine 3 times a day and as necessary med. Gastroenterology department half or 3rd block studies numbing blood work to rule out celiac disease. 2. Nausea and vomiting. She is not complaining of nausea and vomiting today. 3. Anxiety. Continue with home medication. 4. Tobacco abuse. This patient has been highly advised against tobacco abuse. I will continue with daily cessation education. cc: Sudeep Carlos MD
[2017-07-20] MEDS: BENTYL PO SCH ×2 (15:12→15:13)
[2017-07-20] MEDS: SEROQUEL PO SCH (21:04)
[2017-07-20] MEDS: SODIUM CHLORIDE 0.9% INJ SCH (22:37)
[2017-07-21] MEDS: MERREM 1 GM in NS 50 ML IV SCH ×2 (04:23→12:14)
[2017-07-21] MEDS: DILAUDID IV PRN ×2 (04:25→10:37)
[2017-07-21] MEDS: PHENERGAN IV PRN ×2 (04:32→08:41)
[2017-07-21] MEDS: XANAX PO PRN (04:32)
[2017-07-21] MEDS: SODIUM CHLORIDE 0.9% INJ PRN (04:32)
[2017-07-21] MEDS: FLAGYL 500 MG/NS 500 MG/100 ML IVPB IV SCH ×2 (05:48→11:08)
[2017-07-21] MEDS: NS 1,000 ML IV SCH (05:49)
[2017-07-21 06:21] LABS: MANUAL DIFF NEEDED? NO
[2017-07-21 06:34] LABS: BASO% 0.4 % (0.0-0.8); EOS# 0.15 X1000 (0.0-0.7); EOS% 1.3 % (0.0-10.0); HEMATOCRIT 36.1 % (37.0-47.0); HEMOGLOBIN 11.7 g/dL (12.0-16.0); IMM GRAN# 0.08 X1000 (0.0-0.04); IMM GRAN% 0.7 % (0.0-0.5); LYMPH# 3.33 X1000 (1.2-3.4); LYMPH% 29.8 % (20.5-51.1); MCH 30.1 PG (27-31); MCHC 32.4 g/dL (33-37); MCV 92.8 FL (81-99); MONO# 0.83 X1000 (0.11-0.59); MONO% 7.4 % (1.7-9.3); MPV 10.7 FL (7.4-10.4); NEUT% 60.4 % (42.2-75.2); PLT 350 X1000 (130-400); RBC 3.89 XMIL (4.2-5.4)
[2017-07-21] MEDS: BENTYL PO SCH ×2 (06:48→11:08)
[2017-07-21 07:03] LABS: AGAP 11; ALBUMIN 3.6 g/dL (3.5-5.0); ALKALINE PHOSPHATASE 74 U/L (32-104); BUN 15 mg/dL (8-22); CALCIUM 8.6 mg/dL (8.8-10.2); CHLORIDE 103 mmol/L (98-107); COSMO 280; GOT 9 U/L (10-30); GPT 9 U/L (10-36); SODIUM 140 mmol/L (136-145); TCO2 26 mmol/L (25-35); TOTAL BILIRUBIN 0.12 mg/dL (0.20-1.00); TOTAL PROTEIN 6.2 g/dL (6.3-8.3)
[2017-07-21 07:31] VITALS: BP 123/73
[2017-07-21] MEDS: NUCYNTA PO SCH (08:35)
[2017-07-21] MEDS: PROTONIX IV SCH ×2 (08:36→10:56)
[2017-07-21] MEDS: ZOLOFT PO SCH (08:36)
[2017-07-21] MEDS: SODIUM CHLORIDE 0.9% INJ SCH (08:36)
[2017-07-21] MEDS: XANAX PO SCH (08:36)
[2017-07-21] MEDS: LYRICA PO SCH (08:36)
[2017-07-21] MEDS ORDERED: PREDNISONE PO SCH (09:00)
[2017-07-21] MEDS ORDERED: FLAGYL PO SCH (17:00)
--- NOTE | 2017-07-22 08:23 | DISCHARGE SUMMARY ---
ADMISSION DATE: 07/16/2017 DISCHARGE DATE: 07/21/2017 CONSULTATIONS: Dr. Arlene Hurtado with Gastroenterology. PERTINENT PROCEDURES: Abdomen and pelvis CT showed no evidence of obstruction, small bowel prominence notice in the left upper quadrant. Pelvis with intervening normal caliber bowel loops, postsurgical changes to the lumbar spine from previous L2 fracture appears ununited, irregular and sclerotic. No focal inflammatory changes appreciated, no abscess. DISCHARGE DIAGNOSES: 1. Abdominal pain and diarrhea with no definite diagnosis of inflammatory bowel disease, followed by GI Department. She will continue on Zithromax, Bentyl, Flagyl, and prednisone. They are checking her for celiac disease and will follow up with GI on an outpatient basis. 2. Nausea, vomiting resolved. 3. Anxiety, continue with home medications. 4. Tobacco abuse. The patient has highly been advised against tobacco abuse, as well as daily cessation education. HOSPITAL COURSE: Ms. Smith is a 32-year-old female with a history of Crohn's who presented with 5 days of nausea, vomiting, diarrhea, and abdominal pain. She states that she had a sudden onset and it stayed about the same throughout the 5 days. She feels she cannot take it anymore. She kept very little p.o. intake down. No black herb bloody vomitus or stools. Her last bowel movement was on the morning of her admission that was diarrhea. In the ED, she was found to be orthostatic with a supine heart rate of 60, and standing of 115. She was symptomatic when she stood. She was noted to be dizzy and weak all over. She had subjective fevers , alternating chills and sweating. She was noted to have a white count of 15. Her CT of abdomen and pelvis done showed minimal small bowel prominence in the left upper quadrant, but normal caliber loops and no abscess, no focal inflammatory process. She was given 2 L of IV fluids, as well as pain and nausea medication, and admitted with a GI consult, and transferred to [facility] from [place]. She does take chronic benzodiazepines. She has had seizure withdrawals in the past. She was continued on low-dose Xanax to avoid withdrawal, and started on a PPI, and kept n.p.o. and trended her labs. She was also initiated on Levaquin and Flagyl for presumed acute colitis. We also obtained C difficile which was negative. Ova and parasites were negative. Stool culture was negative. Stool for WBCs were few. Dr. Hurtado did initiate IV steroids. The patient did improve greatly. She did initiate her on a diet because she did not plan to do any endoscopy on her over the weekend. She left that up to Dr. Santana who was returning on Wednesday. Dr. Santana just recommended continuing symptomatic treatment and supportive care, continue antibiotics, and still consider this infectious colitis, as she does not have a definite diagnosis of Crohn's or ulcerative colitis, and that she can be discharged to follow up as an outpatient. I also checked an IgA for celiac disease and will follow up with her in the office. VITAL SIGNS: At time of her discharge: Temperature is 98.3 degrees, heart rate 92, respirations 20, blood pressure 123/73, O2 is 97% on room air. DISCHARGE DIET: GI soft. DISCHARGE MEDICATIONS: As per Dr. Ocampo: 1. Xanax 1 mg p.o. t.i.d. 2. Zithromax 500 mg p.o. daily. 3. Bentyl 10 mg p.o. t.i.d. 4. Gabapentin 600 mg p.o. 4 times a day. 5. Flagyl 500 mg p.o. q.6 hours. 6. Prednisone 10 mg p.o. daily. 7. Lyrica 75 mg p.o. t.i.d. 8. Seroquel 600 mg p.o. at bedtime. 9. Zoloft 100 mg p.o. daily. 10. Nucynta 75 mg p.o. t.i.d. FOLLOWUP: Ms. Smith is being discharged home to follow up with Dr. Santana in 2 weeks. She is take all medications as prescribed, as well as follow up with her primary care physician, Dr. Araujo, in 1 week. Patient can return to the ED for any worsening of symptoms. DISCHARGE TIME: 25 MINUTES I personally evaluated this patient face to face, images, vitals signs and lab work were reviewed, she has no history of IBD, we are goig to R/O celiac disease as an outpatient, patient will follow GI as an outpatient as well, symptoms are much better , I agree with the assessment and plan for this patient , and can be discharged today, Sudeep May MD Dictated by BETH Rome for Sudeep Carlos MD cc: MD Gregg Gifford Unknown [facility]
[2017-07-22] MEDS ORDERED: ZITHROMAX PO SCH (09:00)
[2017-07-22] MEDS ORDERED: PREDNISONE PO SCH (09:00)
== END 2017-07-21 14:00 | disposition home or self-care (01) ==
LOC: P.ED 07:27 → 3N 13:46
PROVIDERS: ATTEND Internal Medicine